=== PATIENT | female | born 1950 | race Caucasian/White ===

== ENCOUNTER 2017-02-05 14:37 | Emergency (ER) | payer MEDICARE, OTHER ==
--- NOTE | 2017-02-05 15:08 | ED ---
Lower Extremity Injury HPI - General Chief Complaint: Extremity Injury, Lower Stated Complaint: foot injury Time Seen by Provider: 02/05/17 15:04 Source: patient, RN notes reviewed, old records reviewed Mode of arrival: ambulatory Limitations: no limitations - History of Present Illness Initial Comments: This is a 67-year-old female presenting to the emergency room chief complaint of right second toe inflammation and throbbing. Patient reports that she walked across the street barefoot. Patient denies any foreign body within the toe. Patient states that it is painful whenever she bears weight over it.Patient denies any recent fever, chills, shortness of breath, chest pain, back pain, abdominal pain, nausea vomiting, numbness or tingling, dysuria or hematuria, constipation or diarrhea, headaches or visual changes, or any other current symptoms - Related Data Home Medications Medication Instructions Recorded Confirmed ALPRAZolam [Xanax] 1 mg PO Q8HR 05/07/15 05/20/16 Desvenlafaxine Succinate [Pristiq 50 mg PO DAILY 05/07/15 05/20/16 ER] Enalapril [Vasotec] 10 mg PO DAILY 05/07/15 05/20/16 Ergocalciferol [Vitamin D2] 50,000 unit PO DIRECTED 05/07/15 05/20/16 Insulin Glargine [Lantus] 28 unit SQ HS 05/07/15 05/20/16 Insulin Lispro [humaLOG] 5 units SQ ACHS 05/07/15 05/20/16 Ivokana 100 mg PO DAILY 05/07/15 05/20/16 Levothyroxine Sodium [Synthroid] 100 mcg PO DAILY 05/07/15 05/20/16 Loratadine [Claritin] 10 mg PO DAILY 05/07/15 05/20/16 Simvastatin [Zocor] 20 mg PO HS 05/07/15 05/20/16 Timolol 0.25% Ophth Gel Formin 1 drops RIGHT EYE DAILY 05/07/15 05/20/16 [Timoptic-Xe] metFORMIN HCL [Glucophage] 500 mg PO BID 05/07/15 05/20/16 Previous Rx's Medication Instructions Recorded Famciclovir [Famvir] 500 mg PO Q8HR #21 tablet 05/20/16 Hydrocodone/Acetaminophen [[place] 1 each PO Q6HR PRN #20 tab 05/20/16 5-325] Lidocaine 5% Patch [Lidoderm 5% 1 patch TOPICAL DAILY #5 patch 05/20/16 Patch] Allergies Allergy/AdvReac Type Severity Reaction Status Date / Time Penicillins Allergy Unknown Verified 02/05/17 14:42 Review of Systems ROS Statement: Those systems with pertinent positive or pertinent negative responses have been documented in the HPI. ROS Other: All systems not noted in ROS Statement are negative. Past Medical History Past Medical History: Diabetes Mellitus, Hyperlipidemia, Hypertension, Renal Disease, Thyroid Disorder History of Any Multi-Drug Resistant Organisms: None Reported Past Surgical History: Hysterectomy Additional Past Surgical History / Comment(s): LEFT HAND, D&C, ECTOPIC PREG TIMES 2 Past Psychological History: Depression Smoking Status: Never smoker Past Alcohol Use History: None Reported Past Drug Use History: None Reported General Exam - General Exam Comments Initial Comments: Pleasant 67-year-old female. No distress. Limitations: no limitations General appearance: alert, in no apparent distress Head exam: Present: atraumatic, normocephalic, normal inspection Eye exam: Present: normal appearance, PERRL, EOMI. Absent: scleral icterus, conjunctival injection, periorbital swelling ENT exam: Present: normal exam, mucous membranes moist Neck exam: Present: normal inspection. Absent: tenderness, meningismus, lymphadenopathy Respiratory exam: Present: normal lung sounds bilaterally. Absent: respiratory distress, wheezes, rales, rhonchi, stridor Cardiovascular Exam: Present: regular rate, normal rhythm, normal heart sounds. Absent: systolic murmur, diastolic murmur, rubs, gallop, clicks GI/Abdominal exam: Present: soft, normal bowel sounds. Absent: distended, tenderness, guarding, rebound, rigid Extremities exam: Present: normal inspection, full ROM, normal capillary refill , other (Patient has mild swelling over the right second toe. Patient does have full range of motion. Slight area of erythema. Patient reports that she did not hit that she can remember the cause the pain.). Absent: tenderness, pedal edema, joint swelling, calf tenderness Back exam: Present: normal inspection Neurological exam: Present: alert, oriented X3, CN II-XII intact Psychiatric exam: Present: normal affect, normal mood Skin exam: Present: warm Course Vital Signs 02/05/17 14:39 Temperature 97.8 F Pulse Rate 64 Respiratory 20 Rate Blood Pressure 154/70 O2 Sat by Pulse 97 Oximetry Medical Decision Making - Medical Decision Making This is a 67-year-old female presenting to the emergency room chief complaint of right second toe inflammation and throbbing. Patient reports that she walked across the street barefoot. Patient denies any foreign body within the toe. Patient states that it is painful whenever she bears weight over it.Patient denies any recent fever, chills, shortness of breath, chest pain, back pain, abdominal pain, nausea vomiting, numbness or tingling, dysuria or hematuria, constipation or diarrhea, headaches or visual changes, or any other current symptoms. Patient put x-ray was reviewed and negative for any acute process. Patient was advised to do warm soaks for the toe. Discussed to apply ice to it as well. No evidence of any foreign body seen including splinter other issues within the skin of the toe. Advised to follow-up with her primary care provider if it still continues to persist. Disposition Clinical Impression: Swelling of toe of right foot Disposition: HOME SELF-CARE Condition: Good Instructions: Foot Contusion (ED) Additional Instructions: Patient advised to do warm Epson salt soaks. Follow-up with primary care provider if symptoms continue to persist. Return to the emergency department if any alarming signs or symptoms occur. Referrals: Gilberto Huynh DO [Primary Care Provider] - 1-2 days Time of Disposition: 15:30
--- NOTE | 2017-02-05 15:34 | XR ---
EXAMINATION TYPE: XR foot limited RT DATE OF EXAM: 02/05/2017 COMPARISON: NONE HISTORY: Pain TECHNIQUE: Two views are submitted. FINDINGS: The osseous structures are intact and the joint spaces are preserved. There is no acute fracture or dislocation. Diffuse osteopenia noted and there is arthropathy of the first MTP joint. Chronic appear ing deformity of the distal fibula. IMPRESSION: 1. No acute fracture or dislocation. If symptoms persist, follow-up exam in 7 to 10 days could be ob tained.
[2017-02-05 15:54] VITALS: BP 133/69; PULSE 83; RESP 16; TEMP 98
== END 2017-02-05 15:36 | disposition home or self-care (01) ==
LOC: EC 14:37
DX: M79.89 Other specified soft tissue disorders (principal); M79.674 Pain in right toe(s); E11.9 Type 2 diabetes mellitus without complications; E78.5 Hyperlipidemia, unspecified; I10 Essential (primary) hypertension; E07.9 Disorder of thyroid, unspecified; F32.9 Major depressive disorder, single episode, unspecified; Z79.4 Long term (current) use of insulin; Z79.899 Other long term (current) drug therapy; X58.XXXA Exposure to other specified factors, initial encounter; Y92.89 Other specified places as the place of occurrence of the external cause
CPT/HCPCS: 99284

== ENCOUNTER → 2017-04-19 | Outpatient (CLI) | payer MEDICARE, OTHER ==
--- NOTE | 2017-04-19 22:22 | CONS ---
DATE OF SERVICE: 04/19/2017 This patient is a 67-year-old lady who has been evaluated in the sleep center for obstructive sleep apnea/hypopnea syndrome. HISTORY OF PRESENT ILLNESS/SLEEP-WAKE EVALUATION: The patient was diagnosed with obstructive sleep apnea about 8 years ago in another institution. At that time she was started on treatment with CPAP, and she stopped using equipment about 1-1/2 years ago secondary to some problems with the equipment. At the present time her sleep schedule is from around 10 p.m. to 8 a.m. and she gets out of bed around 11 a.m. She does have problems with falling asleep. She has a TV set in the bedroom. During sleep she snores; has witnessed episodes of stopped breathing. She wakes up from sleep sometimes with nocturia, dry mouth, grinding teeth. In the morning she wakes up tired, has difficulties paying attention, falling asleep during the day. She has irritability, depression. She takes naps several times during the day. She does not feel refreshed after naps. No dreams during naps. No history of cataplexy, hypnagogic hallucinations or sleep paralysis. The patient feels extremely sleepy during the day. [place] Sleepiness Scale is 20. Past medical history is positive for: 1. Diabetes mellitus. 2. Hypothyroidism. 3. Hypertension. 4. Hyperlipidemia. 5. Iron deficiency anemia. 6. Anxiety. PAST SURGICAL HISTORY: 1. Left hand surgery. 2. D&C for ectopic . 3. Hysterectomy; one ovary has been removed ( ). MEDICATIONS: 1. Humalog. 2. Lantus. 3. Invokana. 4. Metformin. 5. Loratadine. 6. Levothyroxine. 7. Enalapril. 8. Pristiq. 9. Simvastatin. 10. Vitamin D supplement. 11. Magnesium supplement. 12. Iron. 13. Alprazolam. SOCIAL HISTORY: Negative for smoking or using alcohol. REVIEW OF SYSTEMS: No fevers. No double vision. No recent chest pain. No shortness of breath. No abdominal pain. No bleeding episodes. No blood in urine. No seizure episodes. Awakenings from sleep. Sleepiness and tiredness during the day. FAMILY HISTORY: Hypertension, heart problems, hyperlipidemia, strokes, snoring, cancer, diabetes, thyroid problems. During physical exam, a pleasant lady without distress. VITAL SIGNS: BP 120/62, HR 64, RR 16, height 5 feet 0 inches, weight 157, BMI 29. Neck 14 inches in circumference. Temperature ( ). Oxygen saturation on room air 96%. HEENT: PERRCAM, EOMI. Evaluation of the oropharynx showed extremely small oropharyngeal air space. Low position of soft palate. Wide pillars. Short distance between soft palate and pharyngeal wall. Restriction of nasal breathing on the left. NECK: Supple. No JVD. Thyroid is not palpable. LUNGS: Clear to percussion and to auscultation. Good air exchange. No wheezing or rhonchi. HEART: S1, S2, regular. No murmurs, gallops or rubs. ABDOMEN: Slightly obese. EXTREMITIES: Obese. Lymphedema of left leg. DIRECTOR HRIS: Awake, alert and oriented x3. Cranial nerves 2 to 7 intact. There is no fasciculation or atrophy noted. No focal deficits observed. IMPRESSION: 1. Snoring, witnessed episodes of stopped breathing during sleep, obstructive sleep apnea/hypopnea syndrome documented by a different institution about 8 years ago, extremely small oropharyngeal air space, excessive daytime sleepiness , [place] Sleepiness Scale 20; obstructive apnea/hypopnea syndrome. 2. Diabetes mellitus. 3. Hypothyroidism. 4. Hypertension. 5. Hyperlipidemia. 6. History of iron deficiency anemia. 7. History of anxiety. 8. Status post left hand surgery. 9. Status post dilatation and curettage. 10. Status post ectopic x2. 11. Status post hysterectomy and removal of one ovary. PLAN: 1. Polysomnography for evaluation of patients breathing during sleep. 2. CPAP/BiPAP titration if sleep study confirms obstructive sleep apnea/ hypopnea syndrome. 3. Preferable position during sleep is on the side. 4. No driving if patient feels any sleepiness. Patient is aware of civil and criminal liability for unsafe driving. 5. I will see the patient for follow-up visit to explain results of the testing and follow-up plan. Thank you very much for referring this patient for consultation. Gerardo Weinberg MD, PhD, FAASM Diplomat of [place] [employer] Sleep Medicine Board by [place] [employer] [place] [employer] Gravure Press Operator of [facility]
== END ==
LOC: SLEEP 11:03
PROVIDERS: ATTEND Internal Medicine
DX: G47.33 Obstructive sleep apnea (adult) (pediatric) (principal); E11.9 Type 2 diabetes mellitus without complications; E03.9 Hypothyroidism, unspecified; E78.5 Hyperlipidemia, unspecified; I10 Essential (primary) hypertension; F41.9 Anxiety disorder, unspecified; D50.9 Iron deficiency anemia, unspecified; Z98.890 Other specified postprocedural states; Z90.710 Acquired absence of both cervix and uterus; Z90.721 Acquired absence of ovaries, unilateral; Z79.899 Other long term (current) drug therapy; Z79.84 Long term (current) use of oral hypoglycemic drugs
CPT/HCPCS: 99211

== ENCOUNTER → 2017-07-26 | Outpatient (CLI) | payer MEDICARE, OTHER ==
--- NOTE | 2017-07-26 15:32 | PN ---
PROGRESS NOTE DATE OF SERVICE: 07/26/2017. 67-year-old lady who had been followed in Sleep Center for treatment of obstructive sleep apnea-hypopnea syndrome. Recently patient had a polysomnogram and CPAP titration sleep study showed extremely severe obstructive sleep apnea. CPAP corrected respiration. I showed and explain results of the sleep studies to the patient in details. She received her CPAP unit and started to use it successfully without problems related to the mask, pressure and humidification. She sleeps better and she feels better during the day. [place] Sleepiness Scale today is 4. I checked patient's CPAP unit and reading from her machine, which showed that patient using equipment 97% of the time for more than 4 hours. CPAP pressure is 8 cm of water. Apnea-hypopnea index reading from the machine 4.2, leak 95% which was 28.8 L/minute which is acceptable. MEDICATIONS: Humalog, Lantus, Invokana, metformin, Loratadine, levothyroxine, enalapril, Pristiq, simvastatin, vitamin D, magnesium supplement, iron supplement, and Alprazolam. PHYSICAL EXAM: GENERAL Patient in no distress. VITAL SIGNS BP 139/64, HR 70, RR 16, weight 158, temp 98.5, oxygen saturation on room air 93%. HEENT PERRLA, EOMI, evaluation of oropharynx showed extremely low position of soft palate. NECK Supple, no JVD. Thyroid is not palpable. LUNGS Clear to percussion and to auscultation. Good air exchange. No wheezing or rhonchi. HEART S1, S2 regular. No murmurs, gallops, or rubs. ABDOMEN Obese. Soft and nontender. Bowel sounds are present. No organomegaly appreciated. EXTREMITIES No clubbing or cyanosis. ECHOCARDIOGRAPHY RADIOLOGY TECHNOLOGIST Awake, alert, and oriented X3. Cranial nerves 2 to 7 intact. There is no fasciculation or atrophy. noted. No focal deficits observed. IMPRESSION: 1. Severe obstructive sleep apnea-hypopnea syndrome; apnea-hypopnea index 17.9 with oxygen desaturation to 73.7% on control with CPAP at 8 cm of water. The patient demonstrated a great compliance with treatment benefitting from treatment. 2. Severe periodic limb movements during titration, but no periodic limb movements during diagnostic night. No present symptoms of periodic limb movements. No movements of legs during the night according to patient. 3. Diabetes mellitus. 4. Hypothyroidism. 5. Hyperlipidemia. 6. Hypertension. 7. History of iron deficiency anemia. 8. History of anxiety. 9. Status post lap band surgery. 10.Status post hysterectomy with removing of 1 ovary. PLAN: 1. Continue treatment with CPAP every night for the whole night. 2. Losing weight. 3. Sleep hygiene with regular time in bed for at least 8 hours. 4. No driving if feeling sleepiness. 5. Prescription for all necessary CPAP supplies. 6. Followup visit in 1 year or yearly if patient has any problems. Thank you very much for allowing me to participate in management of your patient. Sincerely, Gerardo Weinberg MD, PhD, FAASM Diplomat of [place] [employer] [employer] Philanthropy Officer of [facility] [place] . MMODL / FERNANDAN: [id number] /
== END | disposition home or self-care (01) ==
LOC: SLEEP 13:45
PROVIDERS: ATTEND Internal Medicine
DX: G47.33 Obstructive sleep apnea (adult) (pediatric) (principal); G47.61 Periodic limb movement disorder; E11.9 Type 2 diabetes mellitus without complications; E03.9 Hypothyroidism, unspecified; E78.5 Hyperlipidemia, unspecified; I10 Essential (primary) hypertension; D50.9 Iron deficiency anemia, unspecified; F41.9 Anxiety disorder, unspecified; Z98.84 Bariatric surgery status; Z90.710 Acquired absence of both cervix and uterus; Z79.4 Long term (current) use of insulin; Z79.84 Long term (current) use of oral hypoglycemic drugs; Z79.899 Other long term (current) drug therapy

== ENCOUNTER → 2018-08-01 | Outpatient (CLI) | payer MEDICARE, OTHER ==
--- NOTE | 2018-08-01 12:08 | SFUN ---
SLEEP CENTER FOLLOW UP NOTE DATE OF SERVICE: 08/01/2018 This 68-year-old lady had been followed in the sleep center for treatment of obstructive sleep apnea-hypopnea syndrome. Last time I saw patient one year ago. She continued to use her CPAP equipment every night for the whole night without significant problems related to mask fitting, pressure and humidification. She is using nasal pillow mask. Sometimes mask may go out during the night, but she feels comfortable. [place] Sleepiness Scale today is 2, which is absolutely normal. I checked the patient CPAP unit. CPAP pressure is 8 cm of water. Usage is 27 out of 30 nights for more than 4 hours for the last month. Average usage is 6.6 hours which indicated very good compliance. Leak is 26 L/minute, which is borderline. Apnea- hypopnea index 3.1 for the last month and 2.0 for the last night, which is fine. Her weight is 3 pounds less than during previous visit. MEDICATIONS: Humalog, Lantus, Invokana, metformin, loratadine, levothyroxine, enalapril, Pristiq, simvastatin, vitamin D supplement, magnesium supplement, iron supplement, alprazolam. PHYSICAL EXAMINATION: During physical exam, patient in no distress. VITAL SIGNS: BP 105/59, HR 66, RR 16, height 5 feet 0 inches, weight 155, body mass index 30, temperature 98.2, oxygen saturation at room air 94%. HEENT: PERRLA, EOMI. Oropharynx extremely low position of soft palate. NECK: Supple, no JVD. Thyroid is not palpable. LUNGS: Clear to percussion and to auscultation. Good air exchange. No wheezing or rhonchi. HEART: S1, S2 regular. No murmurs, gallops, or rubs. ABDOMEN: Slightly obese. EXTREMITIES: No clubbing or cyanosis. SHAPER OPERATOR: Awake, alert, and oriented X3. Cranial nerves 2 to 7 intact. There is no fasciculation or atrophy. noted. No focal deficits observed. IMPRESSION: 1. Obstructive sleep apnea-hypopnea syndrome. Patient demonstrated great compliance with treatment benefitting from treatment. 2. Clinically no significant leg movements at night. Periodic limb movements have been documented during titration. No periodic limb movement during diagnostic night. 3. Diabetes mellitus. 4. Hypothyroidism. 5. Hyperlipidemia. 6. Hypertension. 7. History of iron deficiency anemia. 8. History of anxiety. 9. Status post lap band surgery. 10.Status post hysterectomy with one ovary had been removed. PLAN: 1. Patient will continue to use CPAP equipment every night for the whole night. 2. Prescription for all necessary CPAP supplies including nasal pillow mask, tube, filters. 3. Continue losing weight. 4. Sleep hygiene with regular time in bed for 7.5 hours. 5. Precautions related to driving. No driving if feeling any sleepiness. Thank you very much for allowing me to participate in management of your patient. Sincerely, Gerardo Weinberg MD, PhD, FAASM Diplomat of [place] [employer] [employer] Timber Sizer of [facility] [place] MMODL / IJN: [id number] /
== END | disposition home or self-care (01) ==
LOC: SLEEP 10:25
PROVIDERS: ATTEND Internal Medicine
DX: G47.33 Obstructive sleep apnea (adult) (pediatric) (principal); G47.61 Periodic limb movement disorder; E11.9 Type 2 diabetes mellitus without complications; E03.9 Hypothyroidism, unspecified; E78.5 Hyperlipidemia, unspecified; I10 Essential (primary) hypertension; F41.9 Anxiety disorder, unspecified; Z86.2 Personal history of diseases of the blood and blood-forming organs and certain disorders involving the immune mechanism; Z98.84 Bariatric surgery status; Z90.721 Acquired absence of ovaries, unilateral; Z79.4 Long term (current) use of insulin; Z79.84 Long term (current) use of oral hypoglycemic drugs

== ENCOUNTER → 2019-02-17 | Outpatient (CLI) | payer MEDICARE, OTHER ==
--- NOTE | 2019-02-17 15:52 | US ---
EXAMINATION TYPE: US carotid duplex BILAT DATE OF EXAM: 02/17/2019 COMPARISON: NONE CLINICAL HISTORY: I65.23 Occlusion and stenosis of bilateral carotid. No Hx of TIA, HTN Controlled [facility] EXAM MEASUREMENTS: RIGHT: Peak Systolic Velocity (PSV) cm/sec ----- Right CCA: 61.6 ----- Right ICA: 91.0 ----- Right ECA: 67.7 ICA/CCA ratio: 1.5 RIGHT: End Diastole cm/sec ----- Right CCA: 14.5 ----- Right ICA: 32.6 ----- Right ECA: 8.4 LEFT: Peak Systolic Velocity (PSV) cm/sec ----- Left CCA: 82.2 ----- Left ICA: 87.7 ----- Left ECA: 85.5 ICA/CCA ratio: 1.1 LEFT: End Diastole cm/sec ----- Left CCA: 20.5 ----- Left ICA: 21.6 ----- Left ECA: 11.7 VERTEBRALS (direction of flow): Right Vertebral: Antegrade Left Vertebral: Antegrade Rhythm: Normal No elevated velocities or significant stenosis. Plaque seen in bilateral bulbs and right CCA. No wa ll thickening. IMPRESSION: Mild degree of grayscale atheromatous plaquing with no sonographically evident hemodynam ically significant stenosis within either visualized carotid arterial system. Criteria for Assigning % of Stenosis / Diameter reduction (Estimation based on the indirect measurements of the internal carotid artery velocities (ICA PSV). 1. Normal (no stenosis)=ICA PSV < 125 cm/s: ratio < 2.0: ICA EDV<40 cm/s. 2. Less than 50% stenosis=ICA PSV < 125 cm/s: ratio < 2.0: ICA EDV<40 cm/s. 3. 50 to 69% stenosis=ICA PSV of 125 to 230 cm/s: ration 2.0 ? 4.0: ICA EDV 40-100 cm/s. 4. Greater than 70% stenosis to near occlusion= ICA PSV > 230 cm/s: ratio > 4.0: ICA EDV > 100 cm/s. 5. Near occlusion= ICA PSV velocities may be low or undetectable: variable ratio and ICA EDV. 6. Total occlusion=unable to detect flow.
== END | disposition home or self-care (01) ==
LOC: RADUSWWP 14:30
PROVIDERS: ATTEND Family Medicine
DX: I25.10 Atherosclerotic heart disease of native coronary artery without angina pectoris (principal); I65.23 Occlusion and stenosis of bilateral carotid arteries
CPT/HCPCS: 93880

== ENCOUNTER → 2019-05-03 | Outpatient (CLI) | payer MEDICARE, OTHER ==
--- NOTE | 2019-05-03 17:27 | MR ---
EXAMINATION TYPE: MR cervical spine wo con DATE OF EXAM: 05/03/2019 COMPARISON: None HISTORY: Radiculopathy TECHNIQUE: Multiplanar, multisequence images of the cervical spine were acquired. Cervical vertebra have normal alignment. Disc spaces are fairly normal. Cervical spinal cord has norm al signal pattern. There is no edema. Brainstem is intact. There is no compression fracture. There is no evidence of cervical disc herniation. There is no cervical paraspinal mass. There is no spinal st enosis. There is developmentally adequate spinal canal. I see no focal bone destruction. IMPRESSION: Negative exam. Cervical spine appears normal for age. No disc herniation or spinal stenosis.
== END | disposition home or self-care (01) ==
LOC: RADMRIMAIN 11:43
PROVIDERS: ATTEND Family Medicine
DX: M54.12 Radiculopathy, cervical region (principal)
CPT/HCPCS: 72141

== ENCOUNTER → 2019-08-07 | Outpatient (CLI) | payer MEDICARE, OTHER ==
--- NOTE | 2019-08-07 12:56 | SFUN ---
SLEEP CENTER FOLLOW UP NOTE DATE OF SERVICE: 08/07/2019 A 69-year-old lady who has been followed in the Sleep Center for treatment of obstructive sleep apnea-hypopnea syndrome. Patient continued to use his CPAP equipment every night for the whole night without significant problems related to mask fitting, pressure or humidification. No snoring while she is using CPAP, although she started to snore right away if she does not use CPAP. [place] Sleepiness Scale today is 0. I checked CPAP unit. CPAP pressure is 8 cm of water. Usage is 28/30 nights for more than 4 hours and otherwise patient is using the machine every night. Average usage 7 hours per night. The patient using nasal pillow mask leak is 19 L/minute, which is borderline. Apnea-hypopnea index only 1.9, which is absolutely normal. In the ED occasions, Humalog, Lantus in location, metformin for better diet, levothyroxine, enalapril, Pristiq, simvastatin, vitamin D, magnesium supplement, iron supplement, [place] during. PHYSICAL EXAM: Patient in no distress BP 133/66, HR 59, R RR 16, height in 60 and 0.5 inches, weight 149.8 pounds with body mass index 28.6. The patient has lost about 5 pounds since previous visit. Temperature 98 and a at 98.6. Oxygen saturation at room air 97%. OROPHARYNX: Extremely low soft palate. Mallampati IV. NECK: Supple, no JVD. Thyroid is not palpable. LUNGS: Clear to percussion and to auscultation. Good air exchange. No wheezing or rhonchi. HEART: S1, S2 regular. No murmurs, gallops, or rubs. ABDOMEN: Soft and nontender. Bowel sounds are present. No organomegaly appreciated. EXTREMITIES: No clubbing or cyanosis. SIDING COREBOARD INSPECTOR: Awake, alert, and oriented X3. Cranial nerves 2 to 7 intact. There is no fasciculation or atrophy. noted. No focal deficits observed. IMPRESSION: 1. Obstructive sleep apnea-hypopnea syndrome. Patient demonstrated great compliance with treatment, benefitting from treatment. 2. Hypertension. 3. Diabetes mellitus. 4. Hypothyroidism. 5. Hyperlipidemia. 6. History of iron-deficiency anemia.. 7. History of anxiety. 8. Status post lap band surgery. 9. Status post hysterectomy with one ovary removed. PLAN: 1. Patient will continue to use CPAP equipment every night for the whole night. 2. Watching weight. 3. Sleep hygiene with regular time in bed for at least 7-1/2 to 8 hours. 4. No driving if feeling any sleepiness. 5. Maintain all necessary prescriptions for CPAP supplies including nasal pillow, mask, tube, filters. 6. Follow-up visit in 1 year or earlier if patient has any problems. Thank you very much for allowing me to participate in management of your patient. Sincerely, eGrardo Weinberg MD, PhD, FAASM Diplomat of [place] [employer] Multimedia Author of [facility] [place] MMODL / IJN: [id number] /
== END ==
LOC: SLEEP 11:06
PROVIDERS: ATTEND Internal Medicine
DX: G47.33 Obstructive sleep apnea (adult) (pediatric) (principal); I10 Essential (primary) hypertension; E11.9 Type 2 diabetes mellitus without complications; E03.9 Hypothyroidism, unspecified; E78.5 Hyperlipidemia, unspecified; D50.9 Iron deficiency anemia, unspecified; F41.9 Anxiety disorder, unspecified; Z98.84 Bariatric surgery status; Z90.710 Acquired absence of both cervix and uterus; Z99.89 Dependence on other enabling machines and devices; Z79.899 Other long term (current) drug therapy; Z79.84 Long term (current) use of oral hypoglycemic drugs

== ENCOUNTER → 2020-11-12 | Outpatient (CLI) | payer MEDICARE, OTHER ==
--- NOTE | 2020-11-12 14:46 | XR ---
EXAMINATION TYPE: XR finger RT DATE OF EXAM: 11/12/2020 COMPARISON: NONE HISTORY: Pain possible foreign body TECHNIQUE: Three views are submitted. FINDINGS: The osseous structures are intact. The joint spaces are preserved and there is no acute fracture or dislocation. IMPRESSION: 1. No definite acute fracture or dislocation if symptoms persist, follow-up study in 7 to 10 days wo uld be suggested
== END ==
LOC: RADXRMAIN 14:14
PROVIDERS: ATTEND Family Medicine
DX: S60.459A Superficial foreign body of unspecified finger, initial encounter (principal)

== ENCOUNTER → 2020-11-18 | Outpatient (CLI) | payer MEDICARE, OTHER ==
--- NOTE | 2020-11-18 12:27 | SFUN ---
SLEEP CENTER FOLLOW UP NOTE DATE OF SERVICE: 11/18/2020 This 70-year-old lady has been followed in Sleep Center for treatment of obstructive sleep apnea-hypopnea syndrome. Previously I saw patient a little bit more than one year ago. She continued to use her equipment every night for the whole night. No snoring with the machine. [place] Sleepiness Scale today is 0. I checked her CPAP unit CPAP pressure at 8 cm of water, usage 29 out of 30 nights for more than 4 hours, average 6.8 hours per night. Leak is 24 L/minute, which is slightly high. Apnea-hypopnea index is normal 2.5. The patient is using AirFit P10 medium mask. MEDICATIONS: Metformin 500 mg twice a day, loratadine 10 mg once a day, levothyroxine 75 mcg once a day, enalapril 2.5 mg once a day, Pristiq 20 mg once a day, simvastatin 20 mg once a day, Humalog and Lantus, alprazolam 1 mg 3 times a day. PHYSICAL EXAMINATION: GENERAL: Patient in no distress. VITAL SIGNS: BP 151/80, HR 77, RR 12, height 5 feet 1 inch, weight 154, BMI 29.0, temperature 98.2, oxygen saturation at room air 96%, HEENT: PERRLA, EOMI. Evaluation of oropharynx extremely low position of soft palate. Mallampati 4. NECK: Supple, no JVD. Thyroid is not palpable. LUNGS: Clear to percussion and to auscultation. Good air exchange. No wheezing or rhonchi. HEART: S1, S2 regular. No murmurs, gallops, or rubs. ABDOMEN: Soft and nontender. Bowel sounds are present. No organomegaly appreciated. EXTREMITIES: No clubbing or cyanosis. VISUAL COORDINATOR: Awake, alert, and oriented X3. Cranial nerves 2 to 7 intact. There is no fasciculation or atrophy. noted. No focal deficits observed. IMPRESSION: 1. Obstructive sleep apnea-hypopnea syndrome. Patient demonstrated 100% compliance with treatment, benefitting from treatment. 2. Hypertension. 3. Diabetes mellitus. 4. Hypothyroidism. 5. History of iron deficiency anemia. 6. Hyperlipidemia. 7. Anxiety. 8. Status post lap band surgery. 9. Status post hysterectomy with one ovary removed. PLAN: 1. Patient will continue to use PAP equipment every night for the whole night. 2. Sleep hygiene with regular time in bed for at least 7-1/2 to 8 hours. 3. Precautions related to driving. No driving if feeling sleepiness. 4. I will maintain all necessary prescription for PAP supplies including mask, tube, filters. 5. Watching weight. 6. Follow-up visit in 6 months or earlier if patient has any problems. Thank you very much for allowing me to participate in management of your patient. Sincerely, Gerardo Weinberg MD, PhD, FAASM Diplomat of [place] [employer] [place] [employer] Contract Mail Carrier of [facility] [place] MMODL / IJN: [id number] /
== END ==
LOC: SLEEP 11:19
PROVIDERS: ATTEND Internal Medicine
DX: G47.33 Obstructive sleep apnea (adult) (pediatric) (principal); I10 Essential (primary) hypertension; E11.9 Type 2 diabetes mellitus without complications; E03.9 Hypothyroidism, unspecified; E78.5 Hyperlipidemia, unspecified; F41.9 Anxiety disorder, unspecified; Z86.2 Personal history of diseases of the blood and blood-forming organs and certain disorders involving the immune mechanism; Z90.711 Acquired absence of uterus with remaining cervical stump; Z90.721 Acquired absence of ovaries, unilateral; Z99.89 Dependence on other enabling machines and devices

== ENCOUNTER → 2021-03-31 | Outpatient (CLI) | payer MEDICARE, OTHER ==
--- NOTE | 2021-04-05 13:31 | MM ---
Reason for exam: clinical finding. Last mammogram was performed 5 years ago. History: Patient is postmenopausal and is nulliparous. Took hormonal contraceptives for 2 years. Physical Findings: Nurse did not find any significant physical abnormalities on exam. MG 3D Diag Mammo W/Cad JOHN Bilateral CC and MLO view(s) were taken. Prior study comparison: April 10, 2016, bilateral MG screening mammo w CAD. November 14, 2013, right diagnostic mammogram w/CAD. The breast tissue is heterogeneously dense. This may lower the sensitivity of mammography. There are benign appearing round and dystrophic calcifications bilaterally. There is no discrete abnormality. Area of concern palpable lesion corresponds to skin lesion left breast. These results were verbally communicated with the patient and result sheet given to the patient on 03/31/21. ASSESSMENT: Benign, BI-RAD 2 RECOMMENDATION: Routine screening mammogram of both breasts in 1 year. Manage on a clinical basis with regard to left palpable skin lesion.
== END | disposition home or self-care (01) ==
LOC: RADMAMWWP 14:08
PROVIDERS: ATTEND Family Medicine
DX: R92.1 Mammographic calcification found on diagnostic imaging of breast (principal); N64.89 Other specified disorders of breast; Z78.0 Asymptomatic menopausal state; Z79.3 Long term (current) use of hormonal contraceptives
CPT/HCPCS: 77066; G0279; 77062

== ENCOUNTER → 2021-05-23 | Outpatient (CLI) | payer MEDICARE, OTHER ==
--- NOTE | 2021-05-23 13:29 | BD ---
EXAMINATION TYPE: Axial Bone Density DATE OF EXAM: 05/23/2021 COMPARISON: 04.10.2016 CLINICAL HISTORY: 71 YR OLD FEMALE.......ICD-10 CODE: N95.1 POST MENOPAUSAL Height: Weight: FRAX RISK QUESTIONS: History of Fracture in Adulthood: YES, AT 50 YRS OLD Secondary Osteoporosis: YES 1. Type 1 Diabetes: YES 3. Menopause before 45: YES, AT 37 RISK FACTORS HISTORY OF: HX OF FXS LT FOOT AND RT ANKLE AT AGE 50 YRS OLD Postmenopausal woman: YES AT AGE 37 YRS OLD, LEFT RT OVARY Take estrogen and/or progesterone medications: YES IN THE PAST FOR ABOUT 3 YRS Hyperparathyroidism: NO Adrenal Insufficiency: NO MEDICATIONS: Thyroid Medications: YES, SYNTHROID FOR ABOUT 15 YRS Additional Medications: BP MEDS, PRESTIQUE, XANAX, CHOLESTEROL MEDS, INSULIN, METFORMIN,..... VIT D A ND CA IN THE PAST ONLY Additional History: HYPERTENSION, DIABETIC, CHOLESTEROL, ANXIETY EXAM MEASUREMENTS: Bone mineral densitometry was performed using the [employer] System. Bone mineral density as measured about the Lumbar spine is: ----- L1-L4(G/cm2): 1.201 T Score Values are as follows: ----- L1: -1.5 ----- L2: 0.0 ----- L3: 1.0 ----- L4: 1.0 ----- L1-L4: 0.2 Bone mineral density has: Increased 5.3% since study of: 04.10.2016 Bone mineral density about the R hip (g/cm2): 0.925 Bone mineral density about the L hip (g/cm2): 0.927 T Score values are as follows: -----R Neck: -1.7 -----L Neck: -1.5 -----R Total: -0.7 -----L Total: -0.6 Bone mineral density has: Decreased -0.5% since study of: 04.10.2016 FRAX%s: THERE IS A 16.2% CHANCE FOR A MAJOR OSTEOPOROTIC FX AND A 2.5% FOR HIP......PROBABILITY FO R FX IN 10 YRS TIME IMPRESSION: Osteopenia (T Score between -2.5 and -1). There is slightly increased risk of fracture and the patient may be considered for treatment. Re-Screen 2-5 years. NOTE: T-SCORE=SD OF THE YOUNG ADULT MEAN.
== END | disposition home or self-care (01) ==
LOC: RADBDWWP 07:47
PROVIDERS: ATTEND Family Medicine
DX: M85.89 Other specified disorders of bone density and structure, multiple sites (principal); I10 Essential (primary) hypertension; E11.9 Type 2 diabetes mellitus without complications
CPT/HCPCS: 77080

== ENCOUNTER → 2021-06-02 | Outpatient (CLI) | payer MEDICARE, OTHER ==
--- NOTE | 2021-06-02 14:02 | SFUN ---
SLEEP CENTER FOLLOW UP NOTE DATE OF SERVICE: 06/02/2021 INTERVAL HISTORY: 71-year-old lady has been followed in Sleep Center for treatment of obstructive sleep apnea-hypopnea syndrome. Patient continued to use her CPAP equipment every night. No snoring with the machine. [place] Sleepiness Scale today is 1, which is perfect. I checked her CPAP unit. Pressure is 8 cm of water. Usage is 29 out of 30 nights and 26 out of 30 nights for more than 4 hours, average 6.9 hours per night. Leak is 19 L/minute which is acceptable. Apnea-hypopnea index is 2.9 which is totally normal. MEDICATIONS: Lantus, Humalog, metformin 500 mg twice a day, Pristiq 20 mg once a day, levothyroxine 75 mcg once a day, enalapril 2.5 mg once a day, simvastatin 20 mg once a day, alprazolam 1 mg up to 3 times a day. PHYSICAL EXAMINATION: GENERAL: Patient in no distress. BP 135/74, HR 82, RR 15. Height 5 feet 1 inch, weight 150, body mass index 28.3. Patient lost 4 pounds since previous visit. Temperature 98.5, oxygen saturation at room air 95%. Evaluation of oropharynx showed low position of soft palate. NECK: Supple, no JVD. Thyroid is not palpable. LUNGS: Clear to percussion and to auscultation. Good air exchange. No wheezing or rhonchi. HEART: S1, S2 regular. No murmurs, gallops, or rubs. ABDOMEN: Slightly obese. Soft and nontender. Bowel sounds are present. No organomegaly appreciated. EXTREMITIES: No clubbing or cyanosis. TENTER FRAME BACK TENDER: Awake, alert, and oriented X3. Cranial nerves 2 to 7 intact. There is no fasciculation or atrophy. noted. No focal deficits observed. IMPRESSION: 1. Obstructive sleep apnea-hypopnea syndrome. Patient demonstrated good compliance with treatment. Normal respiration on CPAP. 2. Diabetes mellitus. 3. Hypertension. 4. Hypothyroidism. 5. History of iron deficiency anemia. 6. Hyperlipidemia. 7. Anxiety. 8. Status post lap band surgery. 9. Status post hysterectomy with 1 ovary removed. PLAN: 1. Patient will continue to use PAP equipment every night for the whole night. 2. Sleep hygiene with regular time in bed for at least 7-1/2 to 8 hours. 3. Precautions related to driving. No driving if feeling sleepiness. 4. I will maintain all necessary prescription for PAP supplies including mask, tube, filters. 5. Watching weight. 6. Follow-up visit in 6 months or earlier if patient has any problems. Thank you very much for allowing me to participate in management of your patient. Sincerely, Gerardo Weinberg MD, PhD, FAASM Diplomat of [place] [employer] Sleep Medicine Board of [place] [employer] Instructional Consultant of [facility] [place] MMODL / FLAQUITO: [id number] /
== END ==
LOC: SLEEP 10:13
PROVIDERS: ATTEND Internal Medicine
DX: G47.33 Obstructive sleep apnea (adult) (pediatric) (principal); E11.9 Type 2 diabetes mellitus without complications; I10 Essential (primary) hypertension; E03.9 Hypothyroidism, unspecified; D50.9 Iron deficiency anemia, unspecified; F41.9 Anxiety disorder, unspecified; Z98.84 Bariatric surgery status; Z99.89 Dependence on other enabling machines and devices; Z90.710 Acquired absence of both cervix and uterus; Z90.721 Acquired absence of ovaries, unilateral; Z79.4 Long term (current) use of insulin; Z79.899 Other long term (current) drug therapy; Z88.0 Allergy status to penicillin

== ENCOUNTER → 2021-08-31 | Outpatient (CLI) | payer MEDICARE, OTHER ==
--- NOTE | 2021-08-31 12:55 | XR ---
Bilateral hips HISTORY: Pain 2 views of each hip are submitted. Vascular calcifications are noted incidentally. No fracture or dislocation bilaterally. Mild concentr ic joint space loss present bilaterally. No significant spurring on the right, question some minimal marginal spurring on the left.. Suspect degenerative disc changes are present at the lumbosacral junc tion with facet arthropathy. IMPRESSION: Some mild osteoarthritic changes suspected, degenerative disc disease and facet arthropat hy in the lower lumbar spine
== END | disposition home or self-care (01) ==
LOC: RADXRMAIN 09:58
PROVIDERS: ATTEND Family Medicine
DX: M51.36 Other intervertebral disc degeneration, lumbar region (principal); M47.816 Spondylosis without myelopathy or radiculopathy, lumbar region; M25.551 Pain in right hip; M25.552 Pain in left hip
CPT/HCPCS: 73521

== ENCOUNTER → 2022-06-21 | Outpatient (CLI) | payer MEDICARE, OTHER ==
--- NOTE | 2022-06-21 11:34 | P.PN ---
Subjective DATE: 06/21/2022 FOLLOW UP VISIT. Patient with obstructive sleep apnea hypopnea syndrome return to sleep center for follow-up visit. Information from previous visit have been reviewed. Patient is using PAP equipment every night for the whole night, getting PAP supplies in time. The patient does not have significant problems with the mask, PAP unit and humidification. [place] sleepiness scale is 0. I checked information from PAP unit. PAP unit pressure 8 cm H2O. Usage is 95 % for more then 4 hours, average 6.8 hours per night. Leak is 10 l/m, which is in acceptable range. Apnea Hypopnea Index is 2.1, which is normal. Hemoglobin A1c according to patient 7.1. MEDICATIONS:1. Insulin 2. Metformin 500 mg twice a day 3. Levothyroxine 75 g once a day 4. Pristiq 5. Enalapril 2.5 mg once a day 6. Alprazolam 1 mg up to 3 times a day During physical exam: GENERAL: A pleasant patient without any distress. VITAL SIGNS: BP 156/84, HR 70, RR 16, weight 147, height 5 foot 1 inch, body mass index 27.7 temperature 98.1, oxygen saturation at room air 96 % . HEENT: PERRLA, EOMI.low position of soft palate, Mallapati 3 . NECK: Supple. No JVD. LUNGS: Clear to percussion and to auscultation. Good air exchange. No wheezing or rhonchi. HEART: S1, S2 regular. ABDOMEN: Soft and nontender.[] EXTREMITIES: No clubbing or cyanosis. LAW CLERK: Awake, alert, and oriented x3. No focal deficit. Impressions: 1. Obstructive sleep apnea-hypopnea syndrome. Patient demonstrated great compliance with treatment, benefiting from treatment. 2. Diabetes mellitus. 3. Hypertension. 4. Hypothyroidism. 5. Hyperlipidemia. 6. History of iron deficiency anemia. 7. Anxiety. 8. Status post lap band surgery. 9. Status post partial hysterectomy with 1 ovary removed. 10. []. 11.[]. 12.[]. Plan: 1. Continue using PAP equipment every night for the whole night. 2. To change air filter at least 1-2 times per month. 3. PAP unit should stay lower then position of the head. 4. Advised patient to remove all remaining water from humidifier canister daily and make it dry after each usage. Refill canister with fresh distilled water before each usage. 5. Sleep hygiene with regular time in bed for at least 8 hours. 6. Precautions related to driving. No driving if feel any sleepiness. 7. I will maintain prescription for PAP supplies including mask, tube, filters. 8. Follow up visit in 6 months or earlier if patient has any problems. 9. Watching weight. Thank you very much for allowing me to participate in the management of your patient. Gerardo Weinberg MD, PhD, FAASM. Diplomat of [place] [employer], Sleep Medicine Board by [place] [employer] Banquet Waiter/Waitress of [facility] [place]
== END ==
LOC: SLEEP 11:08
PROVIDERS: ATTEND Internal Medicine
DX: G47.33 Obstructive sleep apnea (adult) (pediatric) (principal); E11.9 Type 2 diabetes mellitus without complications; I10 Essential (primary) hypertension; E03.9 Hypothyroidism, unspecified; F41.9 Anxiety disorder, unspecified; E78.5 Hyperlipidemia, unspecified; Z90.711 Acquired absence of uterus with remaining cervical stump; Z86.2 Personal history of diseases of the blood and blood-forming organs and certain disorders involving the immune mechanism; Z88.0 Allergy status to penicillin; Z79.4 Long term (current) use of insulin; Z79.84 Long term (current) use of oral hypoglycemic drugs; Z79.890 Hormone replacement therapy; Z98.84 Bariatric surgery status
CPT/HCPCS: 99212

== ENCOUNTER → 2022-12-27 | Outpatient (CLI) | payer MEDICARE, OTHER ==
--- NOTE | 2022-12-27 12:30 | P.PN ---
Subjective DATE: 12/27/2022 FOLLOW UP VISIT. Patient with obstructive sleep apnea hypopnea syndrome return to sleep center for follow-up visit. Information from previous visit have been reviewed. Patient is using PAP equipment every night for the whole night, getting PAP supplies in time. The patient does not have significant problems with the mask, PAP unit and humidification. [place] sleepiness scale is 0. I checked information from PAP unit. PAP unit pressure 8 cm H2O. Usage is 100 % for more then 4 hours, average 6.5 hours per night. Leak is 11 l/m, which is in acceptable range. Apnea Hypopnea Index is 2.2, which is normal. MEDICATIONS:1. Metformin 2. Levothyroxine 3. Pristiq 4. Insulin 5. Simvastatin 6. Alprazolam During physical exam: GENERAL: A pleasant patient without any distress. VITAL SIGNS: BP 155/70, HR 78, RR 14 , weight 145.0, temperature 97.6, oxygen saturation at room air 96 % . HEENT: PERRLA, EOMI.low position of soft palate, Mallapati 3 . NECK: Supple. No JVD. LUNGS: Clear to percussion and to auscultation. Good air exchange. No wheezing or rhonchi. HEART: S1, S2 regular. ABDOMEN: Soft and nontender.[] EXTREMITIES: No clubbing or cyanosis. BEDSPRING ASSEMBLER: Awake, alert, and oriented x3. No focal deficit. Impressions: 1. Obstructive sleep apnea-hypopnea syndrome. Patient demonstrated great compliance with treatment, benefiting from treatment. 2. Hypertension. 3. Diabetes mellitus. 4. Hypothyroidism. 5. Hyperlipidemia. 6. History of anxiety. 7. History of iron deficiency anemia. 8. Status post lap band surgery. 9. Status post partial hysterectomy with 1 ovary removed. Plan: 1. Continue using PAP equipment every night for the whole night. 2. To change air filter at least 1-2 times per month. 3. PAP unit should stay lower then position of the head. 4. Advised patient to remove all remaining water from humidifier canister daily and make it dry after each usage. Refill canister with fresh distilled water before each usage. 5. Sleep hygiene with regular time in bed for at least 8 hours. 6. Precautions related to driving. No driving if feel any sleepiness. 7. I will maintain prescription for PAP supplies including mask, tube, filters. 8. Watching weight. 9. Follow up visit in 6 months or earlier if patient has any problems. Thank you very much for allowing me to participate in the management of your patient. Gerardo Weinberg MD, PhD, FAASM. Diplomat of [place] [employer], Sleep Medicine Board by [place] [employer] Lamp Cleaner of [facility] [place]
== END ==
LOC: SLEEP 10:24
PROVIDERS: ATTEND Internal Medicine
DX: G47.33 Obstructive sleep apnea (adult) (pediatric) (principal); E03.9 Hypothyroidism, unspecified; E11.9 Type 2 diabetes mellitus without complications; E78.5 Hyperlipidemia, unspecified; F41.9 Anxiety disorder, unspecified; I10 Essential (primary) hypertension; Z90.721 Acquired absence of ovaries, unilateral; Z79.84 Long term (current) use of oral hypoglycemic drugs; Z79.890 Hormone replacement therapy; Z79.4 Long term (current) use of insulin; Z46.51 Encounter for fitting and adjustment of gastric lap band; Z98.890 Other specified postprocedural states; Z99.89 Dependence on other enabling machines and devices; Z88.0 Allergy status to penicillin
CPT/HCPCS: 99212

== ENCOUNTER 2023-06-16 11:12 | Emergency (ER) | payer MEDICARE, OTHER ==
[2023-06-16 11:31] VITALS: BP 161/85; PULSE 93; RESP 16; TEMP 98.6
[2023-06-16] MEDS ORDERED: SODIUM CHLORIDE 0.9% 1,000 ML IV ONE (11:43)
[2023-06-16] MEDS ORDERED: KETOROLAC 15 MG/ML 1 ML VIAL IVP STA (11:43)
--- NOTE | 2023-06-16 12:17 | ED ---
General Adult HPI - General Chief complaint: Back Pain/Injury Stated complaint: Left side pain, back pain Time Seen by Provider: 06/16/23 11:37 Source: patient, RN notes reviewed Mode of arrival: ambulatory Limitations: no limitations - History of Present Illness Initial comments: 73-year-old female with no significant past medical history the chief complaint of left flank pain that radiates to the left groin. She reports that she's had symptoms for 3 days. She describes the pain as sharp. Been taking ibuprofen at home without symptomatic improvement. She denies any trauma or injury. Denies any known fevers or chills nausea, vomiting, dysuria, hematuria, vaginal bleeding, vaginal cramping. - Related Data Home Medications Medication Instructions Recorded Confirmed ALPRAZolam [Xanax] 1 mg PO Q8HR 05/07/15 02/06/17 Desvenlafaxine Succinate [Pristiq 50 mg PO DAILY 05/07/15 02/06/17 ER] Enalapril [Vasotec] 2.5 mg PO DAILY 05/07/15 02/06/17 Ergocalciferol [Vitamin D2] 50,000 unit PO DIRECTED 05/07/15 02/06/17 Insulin Glargine [Lantus] 28 unit SQ HS 05/07/15 02/06/17 Insulin Lispro [humaLOG] 5 units SQ AC-BRKFST 05/07/15 02/06/17 Ivokana 100 mg PO DAILY 05/07/15 02/06/17 Levothyroxine Sodium [Synthroid] 50 mcg PO DAILY 05/07/15 02/06/17 Simvastatin [Zocor] 20 mg PO HS 05/07/15 02/06/17 Timolol 0.25% Ophth Gel Formin 1 drops RIGHT EYE DAILY 05/07/15 02/06/17 [Timoptic-Xe] metFORMIN HCL [Glucophage] 500 mg PO BID 05/07/15 02/06/17 Calcium Carbonate [Calcium] 1,200 mg PO 02/06/17 Ferrous Sulfate [Feosol] 325 mg PO BID 02/06/17 02/06/17 INSULIN LISPRO (HumaLOG) [humaLOG] 6 units SQ AC-LUNCH 02/06/17 02/06/17 INSULIN LISPRO (HumaLOG) [humaLOG] 6 units SQ AC-SUPPER 02/06/17 02/06/17 Magnesium Oxide [Magnesium] 250 mg PO DAILY 02/06/17 02/06/17 Previous Rx's Medication Instructions Recorded Ketorolac [Toradol] 10 mg PO Q8HR #15 tab 06/16/23 Lidocaine 5% Patch [Lidoderm 5% 1 patch TOPICAL DAILY #5 patch 06/16/23 Patch] Allergies Allergy/AdvReac Type Severity Reaction Status Date / Time Penicillins Allergy Unknown Verified 06/16/23 11:23 Review of Systems ROS Statement: Those systems with pertinent positive or pertinent negative responses have been documented in the HPI. ROS Other: All systems not noted in ROS Statement are negative. Past Medical History Past Medical History: Diabetes Mellitus, Hyperlipidemia, Hypertension, Renal Disease, Thyroid Disorder History of Any Multi-Drug Resistant Organisms: None Reported Past Surgical History: Hysterectomy Additional Past Surgical History / Comment(s): LEFT HAND, D&C, ECTOPIC PREG TIMES 2 Past Psychological History: Depression Smoking Status: Former smoker Past Alcohol Use History: None Reported Past Drug Use History: None Reported General Exam - General Exam Comments Initial Comments: General: Alert, in no acute distress Head: atraumatic normocephalic. Eyes PERRL, EOMI intact, mucous membranes moist Respiratory: Lungs clear to auscultation bilaterally Cardiovascular: Heart rate regular rate and rhythm Abdominal: Soft without guarding or rebound, left CVA tenderness Extremities: Normal inspection with full range of motion and normal capillary refill Neuroogic: alert and oriented 3, CN II-XII intact, able to ambulate with steady gait Skin: warm dry and intact with normal color Limitations: no limitations Course Vital Signs 06/16/23 11:23 Temperature 98.6 F Pulse Rate 93 Respiratory 16 Rate Blood Pressure 161/85 O2 Sat by Pulse 97 Oximetry - Reevaluation(s) Reevaluation #1: 06/16/23 13:24 Should reevaluated. Patient updated on laboratory and urinaysis results. Patient reports symptomatic improvement Medical Decision Making - Medical Decision Making Was pt. sent in by a medical professional or institution (, PA, OCC THERAPIST, urgent care, hospital, or custodial...) When possible be specific @ -[No] Did you speak to anyone other than the patient for history (EMS, parent, family, police, friend...)? What history was obtained from this source @ -[No] Did you review nursing and triage notes (agree or disagree)? Why? @ -[I reviewed and agree with nursing and triage notes] Were old charts reviewed (outside hosp., previous admission, EMS record, old EKG, old radiological studies, urgent care reports/EKG's, custodial records)? Report findings @ -[No old charts were reviewed] Differential Diagnosis (chest pain, altered mental status, abdominal pain women, abdominal pain men, vaginal bleeding, weakness, fever, dyspnea, syncope, headache, dizziness, GI bleed, back pain, seizure, CVA, palpatations, mental health, musculoskeletal)? @ -[not applicable] EKG interpreted by me (3pts min.). @ -[As above] X-rays interpreted by me (1pt min.). @ -[None done] CT interpreted by me (1pt min.). @ CT abdomen and pelvis does not reveal any evidence of nephrolithiasis U/S interpreted by me (1pt. min.). @ -[None done] What testing was considered but not performed or refused? (CT, X-rays, U/S, labs )? Why? @ -[None] What meds were considered but not given or refused? Why? @ -[None] Did you discuss the management of the patient with other professionals (professionals i.e. , PA, OCC THERAPIST, lab, RT, psych nurse, addiction social worker, wood heel flap trimmer, teacher, public health service officer, case managers)? Give summary @ -[No] Was smoking cessation discussed for >3mins.? @ -[No] Was critical care preformed (if so, how long)? @ -[No] Were there social determinants of health that impacted care today? How? (Homelessness, low income, unemployed, alcoholism, drug addiction, transportation, low edu. Level, literacy, decrease access to med. care, longterm, rehab)? @ -[No] Was there de-escalation of care discussed even if they declined (Discuss DNR or withdrawal of care, Hospice)? DNR status @ -[No] What co-morbidities impacted this encounter? (DM, HTN, Smoking, COPD, CAD, Cancer, CVA, ARF, Chemo, Hep., AIDS, mental health diagnosis, sleep apnea, morbid obesity)? @ -[None] Was patient admitted / discharged? Hospital course, mention meds given and route, prescriptions, significant lab abnormalities, going to OR and other pert inent info. @ Discharged. This is a pleasant 73-year-old female presents the emergency department with left flank pain. Patient had a thorough history and physical exam performed. Mild CVA tenderness noted. Heart rate regular rate and rhythm, lungs clear to auscultation bilaterally (stable. Patient had laboratory and urinalysis results were initially negative. She is provided 1 L IV fluids and Toradol with symptomatic improvement. CT is negative for any intra-abdominal process. I discussed the results in detail with the patient all questions were addressed. She is agreeable with the plan for discharge home with recommended close follow-up with PCP in 1-2 days. She was Provided prescription for Lidoderm and Toradol. Case discussed with Dr. Praveen NORRIS who agrees with plan. Undiagnosed new problem with uncertain prognosis? @ -[No] Drug Therapy requiring intensive monitoring for toxicity (Heparin, Nitro, Insulin, Cardizem)? @ -[No] Were any procedures done? @ -[No] Diagnosis/symptom? @ -Left Flank Pain Acute, or Chronic, or Acute on Chronic? @ -Acute Uncomplicated (without systemic symptoms) or Complicated (systemic symptoms)? @ -Uncomplicated Side effects of treatment? @ -[No] Exacerbation, Progression, or Severe Exacerbation? @ -[No] Poses a threat to life or bodily function? How? (Chest pain, [place], [place], pneumonia, PE, COPD, DKA, ARF, appy, cholecystitis, CVA, Diverticulitis, Homicidal, Suicidal, threat to staff... and all critical care pts) @ -Low likelihood - Lab Data Result diagrams: 06/16/23 11:58 06/16/23 11:58 Lab Results 06/16/23 06/16/23 06/16/23 Range/Units 11:58 11:58 11:58 WBC 7.1 (3.8-10.6) k/uL RBC 4.68 (3.80-5.40) m/uL Hgb 14.3 (11.4-16.0) gm/dL Hct 43.3 (34.0-46.0) % MCV 92.4 (80.0-100.0) fL MCH 30.5 (25.0-35.0) pg MCHC 33.0 (31.0-37.0) g/dL RDW 12.8 (11.5-15.5) % Plt Count 279 (150-450) k/uL MPV 7.2 Neutrophils % 72 % Lymphocytes % 21 % Monocytes % 3 % Eosinophils % 2 % Basophils % 1 % Neutrophils # 5.1 (1.3-7.7) k/uL Lymphocytes # 1.5 (1.0-4.8) k/uL Monocytes # 0.2 (0-1.0) k/uL Eosinophils # 0.1 (0-0.7) k/uL Basophils # 0.0 (0-0.2) k/uL Sodium 138 (137-145) mmol/L Potassium 4.3 (3.5-5.1) mmol/L Chloride 101 (98-107) mmol/L Carbon Dioxide 24 (22-30) mmol/L Anion Gap 13 mmol/L BUN 20 H (7-17) mg/dL Creatinine 0.91 (0.52-1.04) mg/dL Est GFR (CKD-EPI)AfAm 73 (>60 ml/min/1.73 sqM) Est GFR (CKD-EPI)NonAf 64 (>60 ml/min/1.73 sqM) Glucose 223 H (74-99) mg/dL Calcium 10.0 (8.4-10.2) mg/dL Total Bilirubin 0.5 (0.2-1.3) mg/dL AST 43 H (14-36) U/L ALT 37 H (4-34) U/L Alkaline Phosphatase 83 (38-126) U/L Total Protein 8.2 (6.3-8.2) g/dL Albumin 4.5 (3.5-5.0) g/dL Urine Color Yellow Urine Appearance Clear (Clear) Urine pH 5.5 (5.0-8.0) Ur Specific [place] 1.025 (1.001-1.035) Urine Protein Trace H (Negative) Urine Glucose (UA) 1+ H (Negative) Urine Ketones Negative (Negative) Urine Blood Negative (Negative) Urine Nitrite Negative (Negative) Urine Bilirubin Negative (Negative) Urine Urobilinogen <2.0 (<2.0) mg/dL Ur Leukocyte Esterase Trace H (Negative) Urine RBC 1 (0-5) /hpf Urine WBC 5 (0-5) /hpf Ur Squamous Epith Cells 1 (0-4) /hpf Urine Mucus Few H (None) /hpf Disposition Clinical Impression: Flank pain Disposition: HOME SELF-CARE Condition: Stable Instructions (If sedation given, give patient instructions): Acute Low Back Pain (ED), Flank Pain (ED) Additional Instructions: Please return to the nearest emergency department if symptoms worsen or persist Prescriptions: Lidocaine 5% Patch [Lidoderm 5% Patch] 1 patch TOPICAL DAILY #5 patch Ketorolac [Toradol] 10 mg PO Q8HR #15 tab Is patient prescribed a controlled substance at d/c from ED?: No Referrals: Gilberto Huynh DO [Primary Care Provider] - 1-2 days Time of Disposition: 13:27
[2023-06-16 12:30] LABS: Basophils % (A) 1 %; Eosinophils # (A) 0.1 k/uL (0-0.7); Eosinophils % (A) 2 %; HCT 43.3 % (34.0-46.0); HGB 14.3 gm/dL (11.4-16.0); Lymphocytes # (A) 1.5 k/uL (1.0-4.8); Lymphocytes % (A) 21 %; MCH 30.5 pg (25.0-35.0); MCV 92.4 fL (80.0-100.0); Mean Platelet Volume 7.2; Monocytes # (A) 0.2 k/uL (0-1.0); Monocytes % (A) 3 %; Neutrophils # (A) 5.1 k/uL (1.3-7.7); Neutrophils % (A) 72 %; Platelet Count 279 k/uL (150-450); RBC 4.68 m/uL (3.80-5.40); RDW 12.8 % (11.5-15.5); WBC 7.1 k/uL (3.8-10.6)
[2023-06-16 12:40] LABS: Appearance,Urine Clear (Clear); Bilirubin,Urine Negative (Negative); Blood,Urine Negative (Negative); Color,Urine Yellow; Glucose,Urine (UA) 1+ (Negative); Ketones,Urine Negative (Negative); Leukocyte Esterase,Urine Trace (Negative); Mucus,Urine Few /hpf; Nitrite,Urine Negative (Negative); PH, Urine 5.5 (5.0-8.0); Protein,Urine Trace (Negative); RBC,Urine 1 /hpf (0-5); Specific Gravity,Urine 1.025 (1.001-1.035); Squamous Epithelial Cell,Urine 1 /hpf (0-4); Urobilinogen,Urine <2.0 mg/dL (<2.0); WBC,Urine 5 /hpf (0-5)
[2023-06-16 13:12] LABS: ALT 37 U/L (4-34); AST 43 U/L (14-36); African American GFR (CKD) 73 (>60 ml/min/1.73 sqM); Albumin 4.5 g/dL (3.5-5.0); Alkaline Phosphatase 83 U/L (38-126); Anion Gap 13 mmol/L; Blood Urea Nitrogen 20 mg/dL (7-17); Carbon Dioxide 24 mmol/L (22-30); Chloride 101 mmol/L (98-107); Glucose 223 mg/dL (74-99); Non-African American GFR(CKD) 64 (>60 ml/min/1.73 sqM); Potassium 4.3 mmol/L (3.5-5.1); Sodium 138 mmol/L (137-145); Total Bilirubin 0.5 mg/dL (0.2-1.3); Total Protein 8.2 g/dL (6.3-8.2)
--- NOTE | 2023-06-16 14:21 | CT ---
EXAMINATION TYPE: CT abdomen pelvis wo con DATE OF EXAM: 06/16/2023 COMPARISON: 05/07/2015 HISTORY: Left flank pain CT DLP: 490.2 mGycm Automated exposure control for dose reduction was used. TECHNIQUE: Helical acquisition of images was performed from the lung bases through the pelvis. FINDINGS: The lung bases are clear. There is no gallstone, gallbladder distention, pericholecystic fluid or wall thickening. There is no biliary ductal dilatation. There is no organomegaly involving the liver, pancreas, spleen or adrenal glands. There are no renal calcifications or hydronephrosis. The bowel loops are normal in caliber and there is no dilatation or obstruction. No inflammatory ojeda ges identified within the mesentery. There is no free intraperitoneal air or fluid. There is no pelvic mass, free fluid, abscess or adenopathy. There are surgical absence of the uterus. There is at least moderate spinal stenosis at the L3-4 and L4-5 levels. There is advanced degenerative disc disease lower lumbar spine. The osseous structures are intact. IMPRESSION: 1. No significant abnormality seen within the abdomen or pelvis. 2. Degenerative disc disease and spinal stenosis lower lumbar spine. 3. Surgical absence of the uterus.
== END 2023-06-16 15:02 | disposition home or self-care (01) ==
LOC: EC 11:12
DX: R10.9 Unspecified abdominal pain (principal); M48.061 Spinal stenosis, lumbar region without neurogenic claudication; M51.36 Other intervertebral disc degeneration, lumbar region; E11.9 Type 2 diabetes mellitus without complications; I10 Essential (primary) hypertension; E78.5 Hyperlipidemia, unspecified; E07.9 Disorder of thyroid, unspecified; F32.A Depression, unspecified; Z79.890 Hormone replacement therapy; Z79.4 Long term (current) use of insulin; Z88.0 Allergy status to penicillin; Z87.891 Personal history of nicotine dependence; Z79.84 Long term (current) use of oral hypoglycemic drugs
CPT/HCPCS: 36415; 80053; 85025; 81001; 74176; 99284; 96374; 96361; J1885

== ENCOUNTER → 2023-07-18 | Outpatient (CLI) | payer MEDICARE, OTHER ==
--- NOTE | 2023-07-18 11:11 | P.PN ---
Subjective DATE: 07/18/2023 FOLLOW UP VISIT. Patient with obstructive sleep apnea hypopnea syndrome return to sleep center for follow-up visit. Information from previous visit have been reviewed. Patient is using PAP equipment every night for the whole night, getting PAP supplies in time. The patient does not have significant problems with the mask, PAP unit and humidification. [place] sleepiness scale is 1. I checked information from PAP unit. PAP unit pressure 8 cm H2O. Usage is to 100 % for more then 4 hours, average 5.7 hours per night. Leak is on l/m, which is in acceptable range. Apnea Hypopnea Index is 1.8, which is normal. MEDICATIONS:1. Lantus 2. Humalog 3. Pristiq 4. Levothyroxine 5. Simvastatin 6. Ropinirole During physical exam: GENERAL: A pleasant patient without any distress. VITAL SIGNS: BP 165/70, HR 74, RR 12, weight 143.6, temperature 98.0, oxygen saturation at room air 96 % . HEENT: PERRLA, EOMI.low position of soft palate, Mallapati 3 . NECK: Supple. No JVD. LUNGS: Clear to percussion and to auscultation. Good air exchange. No wheezing or rhonchi. HEART: S1, S2 regular. ABDOMEN: Soft and nontender.[] EXTREMITIES: No clubbing or cyanosis. MANAGER SPA: Awake, alert, and oriented x3. No focal deficit. Impressions: 1. Obstructive sleep apnea-hypopnea syndrome. Patient demonstrated great compliance with treatment, benefiting from treatment. 2. Hypertension. 3. Hyperlipidemia. 4. Diabetes mellitus. 5. Hypothyroidism. 6. History of anxiety. 7. History of iron deficiency anemia. 8. Status post partial hysterectomy with 1 ovary removed. 9. Status post lap band surgery. Plan: 1. Continue using PAP equipment every night for the whole night. 2. To change air filter at least 1-2 times per month. 3. PAP unit should stay lower then position of the head. 4. Advised patient to remove all remaining water from humidifier canister daily and make it dry after each usage. Refill canister with fresh distilled water before each usage. 5. Sleep hygiene with regular time in bed for at least 8 hours. 6. Precautions related to driving. No driving if feel any sleepiness. 7. I will maintain prescription for PAP supplies including mask, tube, filters. 8. Follow up visit in 6 months or earlier if patient has any problems. 9. Watching weight. Thank you very much for allowing me to participate in the management of your patient. Gerardo Weinberg MD, PhD, FAASM. Diplomat of [employer], Sleep Medicine Board by [employer] Hat Model [facility] [place]
== END ==
LOC: SLEEP 10:34
PROVIDERS: ATTEND Internal Medicine
DX: G47.33 Obstructive sleep apnea (adult) (pediatric) (principal); I10 Essential (primary) hypertension; E78.5 Hyperlipidemia, unspecified; E11.9 Type 2 diabetes mellitus without complications; E03.9 Hypothyroidism, unspecified; F41.9 Anxiety disorder, unspecified; Z98.84 Bariatric surgery status; Z99.89 Dependence on other enabling machines and devices; Z88.0 Allergy status to penicillin; Z79.84 Long term (current) use of oral hypoglycemic drugs; Z79.4 Long term (current) use of insulin; Z86.2 Personal history of diseases of the blood and blood-forming organs and certain disorders involving the immune mechanism
CPT/HCPCS: 99212

== ENCOUNTER → 2024-01-16 | Outpatient (CLI) | payer MEDICARE, OTHER ==
--- NOTE | 2024-01-16 11:34 | P.PROGSL ---
Subjective DATE: 01/16/2024 FOLLOW UP VISIT. Patient with obstructive sleep apnea hypopnea syndrome return to sleep center for follow-up visit. Information from previous visit have been reviewed. Patient is using PAP equipment every night for the whole night, getting PAP supplies in time. Presently patient has difficulties to initiate sleep. The patient does not have significant problems with the mask, PAP unit and humidification. [place] sleepiness scale is 0. I checked information from PAP unit. PAP unit pressure 8 cm H2O. Usage is 100% for more then 4 hours, average 6 hours per night. Leak is 1 l/m, which is in perfect range. Apnea Hypopnea Index is slightly increased to 7.8. MEDICATIONS: Please see below During physical exam: GENERAL: A pleasant patient without any distress. VITAL SIGNS: Please see below, weight 141 pounds, BMI 27.5. HEENT: PERRLA, EOMI.low position of soft palate, Mallapati 3 . NECK: Supple. No JVD. LUNGS: Clear to percussion and to auscultation. Good air exchange. No wheezing or rhonchi. HEART: S1, S2 regular. ABDOMEN: Soft and nontender.[] EXTREMITIES: No clubbing or cyanosis. MUSEUM TECHNICIAN: Awake, alert, and oriented x3. No focal deficit. Impressions: 1. Obstructive sleep apnea-hypopnea syndrome. Patient demonstrated great compliance with treatment, benefiting from treatment. 2. Difficulties to initiate sleep, psychophysiological insomnia. 3. Diabetes mellitus. 4. Hypothyroidism. 5. Hypertension. 6. Hyperlipidemia. 7. History of anxiety. 8. History of iron deficiency anemia. 9. Status post lap band surgery. 10. Status post partial hysterectomy with 1 ovary removed. Plan: 1. Continue using PAP equipment every night for the whole night. 2. To change air filter at least 1-2 times per month. 3. I discussed with patient psychological techniques for treatment of insomnia including stimulus control and paradoxical intention. 4. Advised patient to remove all remaining water from humidifier canister daily and make it dry after each usage. Refill canister with fresh distilled water before each usage. 5. Sleep hygiene with regular time in bed for at least 8 hours. 6. Precautions related to driving. No driving if feel any sleepiness. 7. I will maintain prescription for PAP supplies including mask, tube, filters. 8. Watching weight. 9. Follow up visit in 6 months or earlier if patient has any problems. Thank you very much for allowing me to participate in the management of your patient. Gerardo Weinberg MD, PhD, FAASM. Diplomat of [place], Sleep Medicine Board by [employer] Tobacco Prevention Health Educator of [facility] [place] Objective - Vital Signs Vital Signs: Vital Signs Temp 98 F 01/16/24 11:22 Pulse 86 01/16/24 11:22 Resp 16 01/16/24 11:22 BP 151/71 01/16/24 11:22 Pulse Ox 96 01/16/24 11:22 FiO2 Intake & Output 01/15/24 01/16/24 01/16/24 18:59 06:59 18:59 Weight 63.957 kg Home Medications: Home Medications Medication Instructions Recorded Confirmed Type ALPRAZolam [Xanax] 1 mg PO Q8HR 05/07/15 01/16/24 History Desvenlafaxine Succinate [Pristiq 50 mg PO DAILY 05/07/15 01/16/24 History ER] Enalapril [Vasotec] 2.5 mg PO DAILY 05/07/15 01/16/24 History Ergocalciferol [Vitamin D2] 50,000 unit PO DIRECTED 05/07/15 01/16/24 History Insulin Glargine [Lantus] 28 unit SQ HS 05/07/15 01/16/24 History Insulin Lispro [humaLOG] 5 units SQ AC-BRKFST 05/07/15 01/16/24 History Ivokana 100 mg PO DAILY 05/07/15 02/06/17 History Levothyroxine Sodium [Synthroid] 50 mcg PO DAILY 05/07/15 01/16/24 History Simvastatin [Zocor] 20 mg PO HS 05/07/15 01/16/24 History Timolol 0.25% Ophth Gel Formin 1 drops RIGHT EYE DAILY 05/07/15 01/16/24 History [Timoptic-Xe] metFORMIN HCL [Glucophage] 500 mg PO BID 05/07/15 01/16/24 History Calcium Carbonate [Calcium] 1,200 mg PO 02/06/17 History Ferrous Sulfate [Feosol] 325 mg PO BID 02/06/17 02/06/17 History INSULIN LISPRO (HumaLOG) [humaLOG] 6 units SQ AC-LUNCH 02/06/17 02/06/17 History INSULIN LISPRO (HumaLOG) [humaLOG] 6 units SQ AC-SUPPER 02/06/17 02/06/17 History Magnesium Oxide [Magnesium] 250 mg PO DAILY 02/06/17 02/06/17 History Ketorolac [Toradol] 10 mg PO Q8HR #15 tab 06/16/23 Rx Lidocaine 5% Patch [Lidoderm 5% 1 patch TOPICAL DAILY #5 patch 06/16/23 Rx Patch]
[2024-01-16 11:38] VITALS: BP 151/71; PULSE 86; RESP 16; TEMP 98
== END ==
LOC: 3 N SLEEP 11:02
PROVIDERS: ATTEND Internal Medicine
DX: G47.33 Obstructive sleep apnea (adult) (pediatric) (principal); E11.9 Type 2 diabetes mellitus without complications; E03.9 Hypothyroidism, unspecified; I10 Essential (primary) hypertension; E78.5 Hyperlipidemia, unspecified; F51.04 Psychophysiologic insomnia; F41.9 Anxiety disorder, unspecified; Z98.890 Other specified postprocedural states; Z98.84 Bariatric surgery status; Z86.2 Personal history of diseases of the blood and blood-forming organs and certain disorders involving the immune mechanism; Z90.711 Acquired absence of uterus with remaining cervical stump; Z99.89 Dependence on other enabling machines and devices; Z88.0 Allergy status to penicillin; Z79.890 Hormone replacement therapy; Z79.4 Long term (current) use of insulin; Z79.84 Long term (current) use of oral hypoglycemic drugs; Z79.899 Other long term (current) drug therapy
CPT/HCPCS: 99212

== ENCOUNTER 2024-04-16 16:00 | Inpatient (IN) | payer MEDICARE, OTHER ==
[~2024-04-16 16:00] MED LIST: HEPARIN SODIUM,PORCINE 5,000 UNIT/ML 1 ML VIAL ONE; LIDOCAINE 1% INJ 10MG/ML (20 ML MDV) ONE; SODIUM CHLORIDE 0.9% 250 ML BAG ONE; VERAPAMIL 2.5 MG/ML 2 ML AMP ONE
[2024-04-16] MEDS ORDERED: HEPARIN SODIUM 1,000 UN/ML (10ML VL) ONE (16:19)
[2024-04-16] MEDS ORDERED: MIDAZOLAM 2 MG/2 ML VIAL ONE (16:19)
[2024-04-16] MEDS ORDERED: SODIUM CHLORIDE 0.9% 500 ML BAG ONE (16:22)
[2024-04-16] MEDS ORDERED: HEPARIN SODIUM,PORCINE 10,000 UNIT/ML 1 ML VIAL ONE (16:22)
[2024-04-16] MEDS ORDERED: SODIUM CHLORIDE 0.9% 1,000 ML BAG ONE (16:22)
[2024-04-16] MEDS ORDERED: CLOPIDOGREL 75 MG TAB ONE (16:43)
[2024-04-16] MEDS ORDERED: HYDROmorphone 0.5 MG/0.5 ML SYRINGE ONE (16:47)
[2024-04-16] MEDS ORDERED: NITROGLYCERIN SL TABS 0.4 MG TAB SUBLINGUAL ONE (17:16)
[2024-04-16] MEDS: IOPAMIDOL-370 200ML BTL INJ ONE (17:21)
[2024-04-16] MEDS ORDERED: METOPROLOL TARTRATE 25 MG TAB ONE (23:17)
[2024-04-16] MEDS ORDERED: lisinopriL 10 MG TAB ONE (23:17)
[2024-04-17] MEDS ORDERED: METOPROLOL TARTRATE 12.5 MG TAB ONE ×2 (09:27→20:47)
[2024-04-17] MEDS ORDERED: ATORVASTATIN 80 MG TAB ONE (09:27)
[2024-04-17] MEDS ORDERED: CLOPIDOGREL 75 MG TAB ONE (09:27)
[2024-04-17] MEDS ORDERED: ASPIRIN 81 MG ONE (09:27)
[2024-04-17] MEDS ORDERED: lisinopriL 10 MG TAB ONE (09:28)
[2024-04-17] MEDS ORDERED: INSULIN ASPART (NovoLOG) 100 UNIT/ML VIAL SQ ONE ×3 (12:27→20:48)
[2024-04-18] MEDS ORDERED: SODIUM CHLORIDE 0.9% 1,000 ML BAG ONE (02:00)
[2024-04-18] MEDS ORDERED: LEVOTHYROXINE 50 MCG TAB ONE (05:20)
[2024-04-18] MEDS ORDERED: lisinopriL 10 MG TAB ONE ×2 (09:20→16:47)
[2024-04-18] MEDS ORDERED: ASPIRIN 81 MG ONE ×2 (09:20→16:46)
[2024-04-18] MEDS ORDERED: ATORVASTATIN 80 MG TAB ONE ×2 (09:20→16:46)
[2024-04-18] MEDS ORDERED: METOPROLOL TARTRATE 12.5 MG TAB ONE ×2 (09:20→16:47)
[2024-04-18] MEDS ORDERED: CLOPIDOGREL 75 MG TAB ONE ×2 (09:20→16:47)
[2024-04-18] MEDS ORDERED: INSULIN ASPART (NovoLOG) 100 UNIT/ML VIAL SQ ONE ×3 (12:16→16:44)
[2024-04-18] MEDS ORDERED: ACETAMINOPHEN IV (For NPO) 100 ML ONE (14:11)
--- NOTE | 2024-05-06 11:35 | CT ---
Patient: Raiza Sky Ordering Physician: Unknown, Unknown ID: [id number] Phone, Pager: Phone: N /A Pager: N/A : 1950 Age/Gender: 74Y, F Primary Location: N/A Procedure: CHEST W/O Study Date : 04/17/2024 11:36:59 AM EXAMINATION TYPE: CT chest wo con DATE OF EXAM: 04/17/2024 COMPARISON: None HISTORY: Open heart workup CT DLP: 331.4 mGycm, Automated exposure control for dose reduction was used. CONTRAST: Performed injected with 0 mL of Isovue 300. TECHNIQUE: Axial images were obtained at 5 mm thick sections. Reconstructed images are reviewed on Zol[employer] computer in the coronal plane. FINDINGS: Portion of the thyroid visualized is normal. Some vague infiltrate may be in the lingula. Correlate for subsegmental atelectasis. Some minimal pos terior lateral subsegmental atelectasis may be present in the right lung base. There is a 1.0 cm pretracheal lymph node. Couple of small shotty lymph nodes may be within the superi or mediastinum. No suspicious hilar adenopathy is evident. The Ascending aorta diameter at the level of the main pulmonary artery is 3.1 cm. The main pulmonary artery diameter at the bifurcation is 2.2 cm. There is some calcification within the ascending thora cic aorta. Some calcifications within the aortic arch. Descending thoracic aorta contains small amoun t of calcification within the wall. Dense prominent coronary artery calcification is present Limited CT sections are obtained through the upper abdomen. Abdomen is essentially unremarkable. IMPRESSION: 1. Scattered calcifications through the ascending aorta, aortic arch, and descending thoracic aorta. 2. Dense coronary artery calcification especially to the left anterior descending. 3. Suggestion of minimal subsegmental atelectasis lingula and right lower lobe.
--- NOTE | 2024-05-12 12:41 | CA ---
Transthoracic Echo Report Name: Raiza Sky Age: 74 Gender: F : 1950 Exam Date: 04/17/2024 07:42 Exam Location: [facility] Ht (in): 60 Wt (lb): 150 Ordering Physician: Attending/Referring Phys: Labor Custodian Tana Faria RDCS Procedure CPT: Indications: Cardiac Hx: Technical Quality: Fair Contrast 1: Total Dose (mL): Contrast 2: Total Dose (mL): MEASUREMENTS (Male / Female) Normal Values 2D ECHO LV Diastolic Diameter PLAX 3.9 cm 4.2 - 5.9 / 3.9 - 5.3 cm LV Systolic Diameter PLAX 2.6 cm IVS Diastolic Thickness 0.9 cm 0.6 - 1.0 / 0.6 - 0.9 cm LVPW Diastolic Thickness 1.1 cm 0.6 - 1.0 / 0.6 - 0.9 cm LV Relative Wall Thickness 0.5 LVOT Diameter 1.8 cm LV Diastolic Volume MOD BP 97.0 cm??? 67 - 155 / 56 - 104 cm??? LV Systolic Volume MOD BP 32.8 cm??? 22 - 58 / 19 - 49 cm??? LV Ejection Fraction MOD BP 66.2 % >= 55 % LV Cardiac Index MOD BP 2349.6 cm???/min???m??? LV Diastolic Volume MOD 4C 85.7 cm??? LV Systolic Volume MOD 4C 27.3 cm??? LV Ejection Fraction MOD 4C 68.1 % LV Cardiac Index MOD 4C 2138.1 cm???/min???m??? LV Diastolic Length 4C 8.2 cm LV Systolic Length 4C 6.4 cm LV Diastolic Volume MOD 2C 107.2 cm??? LV Systolic Volume MOD 2C 36.5 cm??? LV Ejection Fraction MOD 2C 65.9 % LV Cardiac Index MOD 2C 2585.9 cm???/min???m??? LV Diastolic Length 2C 8.4 cm LV Systolic Length 2C 6.9 cm LA Volume 57.7 cm??? 18 - 58 / 22 - 52 cm??? LA Volume Index 33.5 cm???/m??? 16 - 28 cm???/m??? Ascending Aorta Diameter 3.0 cm DOPPLER AV Peak Velocity 254.5 cm/s AV Peak Gradient 25.9 mmHg AV Mean Velocity 180.5 cm/s AV Mean Gradient 15.0 mmHg AV Velocity Time Integral 54.8 cm LVOT Peak Velocity 160.4 cm/s LVOT Peak Gradient 10.3 mmHg LVOT Velocity Time Integral 34.3 cm LVOT Stroke Volume 84.6 cm??? LVOT Stroke Volume Index 51.2 ml/m??? LVOT Cardiac Index 3096.5 cm???/min???m??? AV Area Cont Eq vti 1.5 cm??? AV Area Cont Eq pk 1.6 cm??? MV Peak Velocity 122.4 cm/s MV Peak Gradient 6.0 mmHg MV Mean Velocity 64.3 cm/s MV Mean Gradient 2.1 mmHg MV Velocity Time Integral 43.3 cm MV Area PHT 2.9 cm??? Mitral E Point Velocity 119.8 cm/s Mitral A Point Velocity 98.2 cm/s Mitral E to A Ratio 1.2 MV Deceleration Time 257.4 ms PV Peak Velocity 112.0 cm/s PV Peak Gradient 5.0 mmHg FINDINGS Left Ventricle Left ventricular ejection fraction is estimated at 60-65 %. Left ventricular cavity size normal. No obvious regional wall motion abnormalities. Right Ventricle Normal right ventricular size and function. Unable to estimate the right ventricular systolic pressure. Right Atrium Normal right atrial size. Left Atrium Mildly increased left atrial volume. Mitral Valve Structurally normal mitral valve. No evidence for mitral valve prolapse. No mitral stenosis. Mild mitral regurgitation.mitral annular calcification. Aortic Valve Trileaflet aortic valve. Diffuse thickening of the aortic valve cusps with reduced excursion. Mean gradient 20mmHg. [id number] aortic stenosis. No aortic regurgitation. Tricuspid Valve Structurally normal tricuspid valve. No tricuspid stenosis. No tricuspid regurgitation. Pulmonic Valve Structurally normal pulmonic valve. No pulmonic stenosis. Trace pulmonic regurgitation. Pericardium No pericardial effusion. Aorta Normal size aortic root and proximal ascending aorta. CONCLUSIONS 1. Normal left ventricular size and systolic function 2. Aleg-[id number]-uokmfdgv aortic stenosis with a mean gradient of 20 mmHg 3. Mild mitral regurgitation Previewed by: Dr. Shahid Marinelli MD (Electronically Signed) Final Date: 17 April 2024 10:01
--- NOTE | 2024-05-14 09:23 | XR ---
Raiza Sky ID: [id number] : 1950 EXAMINATION TYPE: XR chest 1V DATE OF EXAM: 04/16/2024 COMPARISON: 12/30/2018 HISTORY: 74-year-old female with chest pain, STEMI TECHNIQUE: Single frontal view of the chest is obtained. FINDINGS: Heart upper limits of normal in size. Some hazy density at the left base appears increased. No other consolidation or pleural effusion is seen. IMPRESSION: Some hazy density at the left base is increased. There could be some patchy atelectasis/infiltrate or trace effusion here.
--- NOTE | 2024-05-14 15:34 | US ---
Raiza Sky ID: [id number] : 1950 EXAMINATION TYPE: US carotid duplex BILAT DATE OF EXAM: 04/17/2024 COMPARISON: NONE CLINICAL INDICATION: 74-year-old female open heart surgery TECHNIQUE: Carotid duplex ultrasound examination. Indirect Doppler criteria was utilized. FINDINGS: EXAM MEASUREMENTS: RIGHT: Peak Systolic Velocity (PSV) cm/sec ----- Right CCA: 102 ----- Right ICA: 85.6 ----- Right ECA: 103.1 ICA/CCA ratio: 0.8 RIGHT: End Diastole cm/sec ----- Right CCA: 15.8 ----- Right ICA: 17.3 ----- Right ECA: 0 LEFT: Peak Systolic Velocity (PSV) cm/sec ----- Left CCA: 82.2 ----- Left ICA: 162.4 ----- Left ECA: 95.0 ICA/CCA ratio: 2.0 LEFT: End Diastole cm/sec ----- Left CCA: 17.6 ----- Left ICA: 32.3 ----- Left ECA: 0 VERTEBRALS (direction of flow): Right Vertebral: Antegrade Left Vertebral: Antegrade Rhythm: Mild atherosclerotic change at the right bifurcation and more moderate at the left bifurcation. IMPRESSION: Increased measurements at the left ICA may represent a moderate, 50 - 69% proximal ICA stenosis. No hemodynamically significant internal carotid artery stenosis on either side. Criteria for Assigning % of Stenosis / Diameter reduction (Estimation based on the indirect measurements of the internal carotid artery velocities (ICA PSV). 1. Normal (no stenosis)=ICA PSV < 125 cm/s: ratio < 2.0: ICA EDV<40 cm/s. 2. Less than 50% stenosis=ICA PSV < 125 cm/s: ratio < 2.0: ICA EDV<40 cm/s. 3. 50 to 69% stenosis=ICA PSV of 125 to 230 cm/s: ration 2.0 ? 4.0: ICA EDV 40-100 cm/s. 4. Greater than 70% stenosis to near occlusion= ICA PSV > 230 cm/s: ratio > 4.0: ICA EDV > 100 cm/s. 5. Near occlusion= ICA PSV velocities may be low or undetectable: variable ratio and ICA EDV. 6. Total occlusion=unable to detect flow.
--- NOTE | 2024-05-14 15:38 | US ---
Site ID [facility] Razia Guillermo ID [id number] 1950 Age/Gender: 74Y, F Order # N/A Procedure US vein mapping BILAT Date 04/17/2024 1:06:00 PM EXAMINATION TYPE: US vein mapping BILAT DATE OF EXAM: 04/17/2024 2:24 PM COMPARISON: NONE CLINICAL INDICATION: Female, 74 year old with history of vein mapping open heart. SIDE PERFORMED: Bilateral TECHNIQUE: Lower extremity saphenous vein is examined and measured utilizing real time linear array sonography. Patient History: Smoker: N/A Heart Disease: N/A Previous DVT: N/A Vascular Surgery: N/A Discoloration: N/A Hypertension: N/A Diabetes: N/A Paralysis: N/A Varicosities: N/A Edema: N/A DUPLEX FINDINGS: Greater Saphenous: Color flow seen Measurements in mm: Right Greater Saphenous: Groin: 8.1 x 6.4 mm High Thigh: 5.3 x 3.4 mm Mid Thigh: 3.1 x 2.5 mm Above Knee: 3.2 x 2.7 mm Knee: 3.3 x 2.1 mm Below Knee: 3.2 x 3.3 mm Mid Calf: 2.1 x 1.7 mm At Ankle: 3.0 x 1.6 mm Left Greater Saphenous: Groin: 11.0 x 5.9 mm High Thigh: 6.1 x 4.1 mm Mid Thigh: 4.8 x 3.3 mm Above Knee: 3.9 x 2.8 mm Knee: 3.7 x 3.3 mm Below Knee: 4.3 x 3.0 mm Mid Calf: 2.6 x 2.2 mm At Ankle: 3.1 x 2.7 mm IMPRESSION: 1. Bilateral GSV measurements listed above. 2. Performing surgeon to determine viability as conduit.
--- NOTE | 2024-05-14 15:39 | US ---
EXAMINATION TYPE: Pre-Operative Non-Invasive Evaluation of the hand for Potential Radial Artery Shefali barton, Measurements only DATE OF EXAM: 04/17/2024 2:33 PM CLINICAL INDICATION: Unknown, old with history of ; SIDE PERFORMED: TECHNIQUE: Radial artery is measured utilizing real time linear array sonography. Dominant hand: Duplex Findings: Radial Artery: Color flow seen Measurements in mm, transverse view: Left Radial: Proximal: .46 x .41 cm Mid: .26x.20 cm Distal: .2 x .18 cm IMPRESSION: 1. Left Radial artery measurements listed above. 2. Performing surgeon to determine viability as conduit.
== END 2024-04-18 17:30 | disposition home or self-care (01) | DRG 282 ==
LOC: 3SCARD 16:00
PROVIDERS: ADMIT Internal Medicine Interventional Cardiology; ATTEND Internal Medicine Interventional Cardiology
PROC: 4A023N7 Measurement of Cardiac Sampling and Pressure, Left Heart, Percutaneous Approach (ICD-10-PCS; principal; 2024-04-16 16:22)
PROC: B2111ZZ Fluoroscopy of Multiple Coronary Arteries using Low Osmolar Contrast (ICD-10-PCS; 2024-04-16 16:22)
DX: I21.4 Non-ST elevation (NSTEMI) myocardial infarction (principal); I25.10 Atherosclerotic heart disease of native coronary artery without angina pectoris; Z79.01 Long term (current) use of anticoagulants; I48.0 Paroxysmal atrial fibrillation; I08.3 Combined rheumatic disorders of mitral, aortic and tricuspid valves; E03.9 Hypothyroidism, unspecified; Z79.4 Long term (current) use of insulin; Z79.84 Long term (current) use of oral hypoglycemic drugs; F32.A Depression, unspecified; G47.33 Obstructive sleep apnea (adult) (pediatric); I65.22 Occlusion and stenosis of left carotid artery; E78.5 Hyperlipidemia, unspecified; E11.9 Type 2 diabetes mellitus without complications; M19.90 Unspecified osteoarthritis, unspecified site; Z79.890 Hormone replacement therapy; Z88.0 Allergy status to penicillin
CPT/HCPCS: 71045; 71250; 80061; 80074; 83036; 92978; 93306; 93458; 93880; 93970; 94150; 96374; 99285

== ENCOUNTER → 2024-05-26 | Outpatient (CLI) | payer MEDICARE, OTHER ==
[2024-05-26 14:06] LABS: Chol/HDL Ratio 3.58 Ratio; LDL Cholesterol,Calculated 64.6 mg/dL (0.0-131.0)
[2024-05-27 03:31] LABS: Apolipoprotein A1 151 mg/dL (125 - 215); B/A1 Ratio 0.51 Ratio (0.30 - 0.90)
[2024-05-27 10:23] LABS: Lipoprotein A <5 mg/dL (0-30)
== END | disposition home or self-care (01) ==
LOC: LABWHC1 09:02
PROVIDERS: ATTEND Internal Medicine
DX: Z00.00 Encounter for general adult medical examination without abnormal findings (principal)
CPT/HCPCS: 36415; 80061; 82172; 83695

== ENCOUNTER → 2024-09-17 | Outpatient (CLI) | payer MEDICARE, OTHER ==
[2024-09-17 10:39] VITALS: BP 145/69; PULSE 58; RESP 20; TEMP 98.2
--- NOTE | 2024-09-17 10:57 | P.PROGSL ---
Subjective DATE: 09/17/2024 FOLLOW UP VISIT. Patient with obstructive sleep apnea hypopnea syndrome return to sleep center for follow-up visit. Information from previous visit have been reviewed. Patient is using PAP equipment every night for the whole night, getting PAP supplies in time. The patient does not have significant problems with the mask, PAP unit and humidification. [place] sleepiness scale is 2, which is normal. I checked information from PAP unit. PAP unit pressure 5-9, average 9 cm H2O. Usage is 90% for more then 4 hours, average 7.9 hours per night. Leak is 15 l/m, which is in acceptable range. Apnea Hypopnea Index is 2.0, which is normal. MEDICATIONS have been reviewed, please see below. During physical exam: GENERAL: A pleasant patient without any distress. VITAL SIGNS: Please see below, weight is 139.6 lbs. HEENT: PERRLA, EOMI.low position of soft palate, Mallapati 3. NECK: Supple. No JVD. LUNGS: Clear to percussion and to auscultation. Good air exchange. No wheezing or rhonchi. HEART: S1, S2 regular. ABDOMEN: Soft and nontender.[] EXTREMITIES: No clubbing or cyanosis. RN CARE TRANSITION: Awake, alert, and oriented x3. No focal deficit. Impressions: 1. Obstructive sleep apnea-hypopnea syndrome. Patient demonstrated great compliance with treatment, benefiting from treatment. 2. History of psychophysiological insomnia. 3. Diabetes mellitus. 4. Hypothyroidism. 5. Hypertension. 6. Hyperlipidemia. 7. History of anxiety. 8. Status post lap band surgery. 9. Status post partial hysterectomy with 1 ovary removed. 10. History of iron deficiency anemia. 11.[]. 12.[]. Plan: 1. Continue using PAP equipment every night for the whole night. 2. Sleep hygiene with regular time in bed for at least 7.5-8 hours 3. PAP unit should stay lower then position of the head. 4. Advised patient to remove all remaining water from humidifier canister daily and make it dry after each usage. Refill canister with fresh distilled water before each usage. 5. Watching weight. 6. Precautions related to driving. No driving if feel any sleepiness. 7. I will maintain prescription for PAP supplies including mask, tube, filters. 8. Follow up visit in 8 months or earlier if patient has any problems. Thank you very much for allowing me to participate in the management of your patient. Gerardo Weinberg MD, PhD, FAASM. Diplomat of [place] [employer], Sleep Medicine Board by [place] [employer] Packaging Technician of [facility] [place] [facility] Objective - Vital Signs Vital Signs: Vital Signs Temp 98.2 F 09/17/24 10:38 Pulse 58 L 09/17/24 10:38 Resp 20 09/17/24 10:38 BP 145/69 09/17/24 10:38 Pulse Ox 98 09/17/24 10:38 FiO2 Intake & Output 09/16/24 09/17/24 09/17/24 18:59 06:59 18:59 Weight 63.219 kg Home Medications: Home Medications Medication Instructions Recorded Confirmed Type ALPRAZolam [Xanax] 1 mg PO Q8HR 05/07/15 01/16/24 History Desvenlafaxine Succinate [Pristiq 50 mg PO DAILY 05/07/15 01/16/24 History ER] Enalapril [Vasotec] 2.5 mg PO DAILY 05/07/15 01/16/24 History Ergocalciferol [Vitamin D2] 50,000 unit PO DIRECTED 05/07/15 01/16/24 History Insulin Glargine (Lantus) [Lantus] 28 unit SQ HS 05/07/15 01/16/24 History Insulin Lispro [humaLOG] 5 units SQ AC-BRKFST 05/07/15 01/16/24 History Ivokana 100 mg PO DAILY 05/07/15 02/06/17 History Levothyroxine Sodium [Synthroid] 50 mcg PO DAILY 05/07/15 01/16/24 History Simvastatin [Zocor] 20 mg PO HS 05/07/15 01/16/24 History Timolol 0.25% Ophth Gel Formin 1 drops RIGHT EYE DAILY 05/07/15 01/16/24 History [Timoptic-Xe] metFORMIN HCL [Glucophage] 500 mg PO BID 05/07/15 01/16/24 History Calcium Carbonate [Calcium] 1,200 mg PO 02/06/17 History Ferrous Sulfate [Feosol] 325 mg PO BID 02/06/17 02/06/17 History INSULIN LISPRO (HumaLOG) [humaLOG] 6 units SQ AC-LUNCH 02/06/17 02/06/17 History INSULIN LISPRO (HumaLOG) [humaLOG] 6 units SQ AC-SUPPER 02/06/17 02/06/17 History Magnesium Oxide [Magnesium] 250 mg PO DAILY 02/06/17 02/06/17 History Ketorolac [Toradol] 10 mg PO Q8HR #15 tab 06/16/23 Rx Lidocaine 5% Patch [Lidoderm 5% 1 patch TOPICAL DAILY #5 patch 06/16/23 Rx Patch]
== END ==
LOC: 3 N SLEEP 09:54
PROVIDERS: ATTEND Internal Medicine
DX: G47.33 Obstructive sleep apnea (adult) (pediatric) (principal); E11.9 Type 2 diabetes mellitus without complications; E03.9 Hypothyroidism, unspecified; Z88.0 Allergy status to penicillin; I10 Essential (primary) hypertension; E78.5 Hyperlipidemia, unspecified; Z86.59 Personal history of other mental and behavioral disorders; Z98.84 Bariatric surgery status; Z90.710 Acquired absence of both cervix and uterus; Z85.818 Personal history of malignant neoplasm of other sites of lip, oral cavity, and pharynx
CPT/HCPCS: 99212

== ENCOUNTER → 2025-01-15 | Outpatient (CLI) | payer MEDICARE, OTHER ==
[2025-01-15 11:47] VITALS: BP 122/67; PULSE 60; RESP 12; TEMP 97.9
--- NOTE | 2025-01-15 12:09 | P.PROGSL ---
Subjective DATE: 10/18/2024 FOLLOW UP VISIT. Patient with obstructive sleep apnea hypopnea syndrome return to sleep center for follow-up visit. Information from previous visit have been reviewed. Patient is using PAP equipment every night for the whole night, getting PAP supplies in time. The patient does not have significant problems with the mask, PAP unit and humidification. [place] sleepiness scale is 0, which is perfect. I checked PAP unit. Motor life expectancy exceeded, but unit works well. PAP unit pressure 5-10, average 9.3 cm H2O. Usage is 90% for more then 4 hours, average 7 hours per night. Leak is 8 l/m, which is in acceptable range. Apnea Hypopnea Index is 2.2, which is normal. MEDICATIONS have been reviewed, please see below. During physical exam: GENERAL: A pleasant patient without any distress. VITAL SIGNS: Please see below, weight is 141 lbs. HEENT: PERRLA, EOMI.low position of soft palate, [place]ati 3. NECK: Supple. No JVD. LUNGS: Clear to percussion and to auscultation. Good air exchange. No wheezing or rhonchi. HEART: S1, S2 regular. ABDOMEN: Soft and nontender.[] EXTREMITIES: No clubbing or cyanosis. CRIPPLE CUTTER: Awake, alert, and oriented x3. No focal deficit. Impressions: 1. Obstructive sleep apnea-hypopnea syndrome. Patient demonstrated great compliance with treatment, benefiting from treatment. 2. History of psychophysiological insomnia. 3. Diabetes mellitus, hemoglobin A1c according to patient 6.2. 4. Hypothyroidism. 5. Hypertension. 6. History of anxiety. 7. History of iron deficiency anemia. 8. Status post lap band surgery. 9. Status post partial hysterectomy with 1 ovary removed. Plan: 1. Continue using PAP equipment every night for the whole night. 2. Sleep hygiene with regular time in bed for at least 7.5-8 hours 3. PAP unit should stay lower then position of the head. 4. Advised patient to remove all remaining water from humidifier canister daily and make it dry after each usage. Refill canister with fresh distilled water before each usage. 5. Watching weight. 6. Precautions related to driving. No driving if feel any sleepiness. 7. I will maintain prescription for PAP supplies including mask, tube, filters. 8. Follow up visit in 8 months or earlier if patient has any problems. Thank you very much for allowing me to participate in the management of your patient. Gerardo Weinberg MD, PhD, FAASM. Diplomat of [place] [employer], Sleep Medicine Board by [place] Science Teacher of [facility] [place] Objective - Vital Signs Vital Signs: Vital Signs Temp 97.9 F 01/15/25 11:46 Pulse 60 01/15/25 11:46 Resp 12 01/15/25 11:46 BP 122/67 01/15/25 11:46 Pulse Ox 98 01/15/25 11:46 FiO2 Intake & Output 01/14/25 01/15/25 01/15/25 18:59 06:59 18:59 Weight 63.957 kg Home Medications: Home Medications Medication Instructions Recorded Confirmed Type ALPRAZolam [Xanax] 1 mg PO Q8HR 05/07/15 01/16/24 History Desvenlafaxine Succinate [Pristiq 50 mg PO DAILY 05/07/15 01/16/24 History ER] Enalapril [Vasotec] 2.5 mg PO DAILY 05/07/15 01/16/24 History Ergocalciferol [Vitamin D2] 50,000 unit PO DIRECTED 05/07/15 01/16/24 History Insulin Glargine (Lantus) [Lantus] 28 unit SQ HS 05/07/15 01/16/24 History Insulin Lispro [humaLOG] 5 units SQ AC-BRKFST 05/07/15 01/16/24 History Ivokana 100 mg PO DAILY 05/07/15 02/06/17 History Levothyroxine Sodium [Synthroid] 50 mcg PO DAILY 05/07/15 01/16/24 History Simvastatin [Zocor] 20 mg PO HS 05/07/15 01/16/24 History Timolol 0.25% Ophth Gel Formin 1 drops RIGHT EYE DAILY 05/07/15 01/16/24 History [Timoptic-Xe] metFORMIN HCL [Glucophage] 500 mg PO BID 05/07/15 01/16/24 History Calcium Carbonate [Calcium] 1,200 mg PO 02/06/17 History Ferrous Sulfate [Feosol] 325 mg PO BID 02/06/17 02/06/17 History INSULIN LISPRO (HumaLOG) [humaLOG] 6 units SQ AC-LUNCH 02/06/17 02/06/17 History INSULIN LISPRO (HumaLOG) [humaLOG] 6 units SQ AC-SUPPER 02/06/17 02/06/17 His tory Magnesium Oxide [Magnesium] 250 mg PO DAILY 02/06/17 02/06/17 History Ketorolac [Toradol] 10 mg PO Q8HR #15 tab 06/16/23 Rx Lidocaine 5% Patch [Lidoderm 5% 1 patch TOPICAL DAILY #5 patch 06/16/23 Rx Patch]
== END ==
LOC: 3 N SLEEP 11:26
PROVIDERS: ATTEND Internal Medicine
DX: G47.33 Obstructive sleep apnea (adult) (pediatric) (principal); E11.9 Type 2 diabetes mellitus without complications; E03.9 Hypothyroidism, unspecified; I10 Essential (primary) hypertension; F41.9 Anxiety disorder, unspecified; Z90.710 Acquired absence of both cervix and uterus; Z86.2 Personal history of diseases of the blood and blood-forming organs and certain disorders involving the immune mechanism; Z98.890 Other specified postprocedural states; Z99.89 Dependence on other enabling machines and devices; Z88.0 Allergy status to penicillin
CPT/HCPCS: 99212

== ENCOUNTER → 2025-02-09 | Outpatient (CLI) | payer MEDICARE, OTHER ==
--- NOTE | 2025-02-09 08:12 | MM ---
Reason for Exam: Clinical finding. Last mammogram was performed 3 year(s) and 10 month(s) ago. Indicated Problems: Lump or thickening of the left side for 4 Year(s). Patient History: Menarche at age 12. Patient has no children. Right ovary removed at age 32. Hysterectomy at age 32. Postmenopausal. Patient used Hormonal Contraceptives for 2 years. Risk Values: [place] 5 year model risk: 2.2%. NCI Lifetime model risk: 5.3%. Prior Study Comparison: 05/16/2013 Bilateral Screening Mammogram, [facility]. 05/20/2013 Bilateral Diagnostic Mammogram, [facility]. 11/14/2013 Right Diagnostic Mammogram, [facility]. 04/10/2016 Bilateral Screening Mammogram, [facility]. 03/31/2021 Bilateral Diagnostic Mammogram, [facility]. Tissue Density: The breasts are heterogeneously dense, which may obscure small masses. Findings: Analyzed By CAD. The right breast is also imaged as the patient is overdue for her annual exam. Punctate grouped microcalcifications medial right breast are unchanged. A few scattered benign round calcifications on the right are also unchanged. Focal asymmetries upper inner quadrant left breast middle depth become less defined on spot 3-D. Given patient's report of a mass, further ultrasound evaluation is recommended. Overall Assessment: Incomplete: need additional imaging evaluation, BI-RAD 0 Management: Diagnostic Breast Ultrasound of the left breast. Upper inner quadrant [facility], , 02/09/2025 8:09 AM. Electronically signed and approved by: Bill Neri M.D. Radiologist
--- NOTE | 2025-02-09 08:35 | USB ---
Patient History: Menarche at age 12. Patient has no children. Right ovary removed at age 32. Hysterectomy at age 32. Postmenopausal. Patient used Hormonal Contraceptives for 2 years. Risk Values: [place] 5 year model risk: 2.2%. NCI Lifetime model risk: 5.3%. Technique: Method: Targeted. Doppler: Color. Patient Position: Supine. Prior Study Comparison: 11/14/2013 Right Diagnostic Mammogram, [facility]. 04/10/2016 Bilateral Screening Mammogram, [facility]. 03/31/2021 Bilateral Diagnostic Mammogram, [facility]. Findings: The upper inner quadrant of the left breast, the axilla of the left breast and the retroareolar of the left breast were scanned. There are a few shadowing hypoechoic areas in the upper inner quadrant, measuring 2.1 cm at 10:00, 5 cm from the nipple, and a couple areas measuring 1.4 cm and 0.6 cm at 12:00, 3 cm from the nipple. Findings may reflect prominent islands of fibroglandular tissue, possible mammographic correlates. Six-month follow-up is recommended. If any change at that time, biopsy can be performed. Overall Assessment: Probably benign, BI-RAD 3 Management: Diagnostic Mammogram of the left breast in 6 months. Diagnostic Breast Ultrasound of the left breast in 6 months. A clinical breast exam by your physician is recommended on an annual basis and results should be correlated with mammographic findings. This exam should not preclude additional follow-up of suspicious palpable abnormalities. Results were given to the patient verbally at the time of exam. [facility], , 02/09/2025 8:32 AM. Electronically signed and approved by: Bill Neri M.D. Radiologist
== END | disposition home or self-care (01) ==
LOC: RADMAMWWP 07:12
PROVIDERS: ATTEND Family Medicine
DX: N63.22 Unspecified lump in the left breast, upper inner quadrant (principal); R92.333 Mammographic heterogeneous density, bilateral breasts; R92.1 Mammographic calcification found on diagnostic imaging of breast; Z92.0 Personal history of contraception; Z78.0 Asymptomatic menopausal state
CPT/HCPCS: 77066; 76642; G0279; 77062